=== PATIENT | male | born 1985 | race Caucasian/White ===

== ENCOUNTER 2016-05-28 19:14 | Emergency (ER) | payer SELFPAY ==
[~2016-05-28] VITALS: Ht 175.3 cm; Wt 90.9 kg
[~2016-05-28 19:14] MED LIST: CIPRO 500MG TA500 MG PO; LORTAB 5/500 501 TAB PO; NO HOME MEDICATIONS; NORCO 325 MG-51 TAB PO; PEN-VEE K500 MG PO; PERIDEX (CHLOR480 ML MM; PHENERGAN 25 TA25 MG PO
[2016-05-28 19:25] VITALS: BP 143/94; PULSE 77; TEMP 99.1
[2016-05-28] MEDS ORDERED: ZOFRAN8 MG PO (20:12)
== END 2016-05-28 20:23 | disposition left against medical advice (07) ==
LOC: COL.ER 19:14
DX: R53.83 Other fatigue (principal); R51 Headache; M79.1 Myalgia

== ENCOUNTER 2016-06-02 10:45 | Emergency (ER) | payer SELFPAY ==
[~2016-06-02] VITALS: Ht 177.8 cm; Wt 90.9 kg
[~2016-06-02 10:45] MED LIST changes: +ZOFRAN8 MG PO
[2016-06-02 10:46] VITALS: BP 146/119; TEMP 98.4
[2016-06-02 11:50] LABS: BASO # 0.1 (0.0-0.2); BASO % 0.7 % (0.0-2.0); EOS # 0.5 (0.0-0.7); EOS % 7.1 % (0-4.0); GRAN # 3.2 (1.4-6.5); GRAN % 45.8 % (42.2-75.2); HEMATOCRIT 46.9 % (42.0-52.0); HEMOGLOBIN 15.8 g/dl (13.5-18.0); LYMPH # 2.6 (1.2-3.4); LYMPH % 36.4 % (20.0-51.0); MEAN CELL VOLUME 92 fl (80.0-100.0); MEAN CORPUSCULAR HEMOGLOBIN 31 pg (27.0-31.0); MEAN CORPUSCULAR HGB CONC 34 g/dl (33.0-37.0); MEAN PLATELET VOLUME 11.6 fl (7.4-10.4); MONO # 0.7 (0.1-0.6); MONO % 9.9 % (1.7-9.3); PLATELET COUNT 227 K/mm3 (130-400); RED BLOOD COUNT 5.08 M/mm3 (4.20-5.60); REDCELL DISTRIBUTION WIDTH-CV 12.3 % (11.5-14.5); WHITE BLOOD COUNT 7.1 K/mm3 (4.8-10.8)
[2016-06-02 12:02] LABS: PH 7 (5-8); SQUAMOUS EPITHELIAL None Seen /hpf; URINE APPEARANCE Cloudy; URINE BACTERIA Rare /hpf; URINE BILIRUBIN Negative (NEGATIVE); URINE BLOOD Negative (NEGATIVE); URINE COLOR Yellow; URINE GLUCOSE Negative (NEGATIVE); URINE KETONE Negative (NEGATIVE); URINE RBC 0-2 /hpf
[2016-06-02 12:05] LABS: ADJUSTED CALCIUM 9.2 mg/dL (8.4-10.2); ALANINE AMINOTRANSFERASE 74 U/L (21-72); ALBUMIN 4.1 gm/dL (3.5-5.0); ALKALINE PHOSPHATASE 55 U/L (50-136); ANION GAP 10 mmol/L (7-16); BILIRUBIN,TOTAL 0.7 mg/dL (0.0-1.0); BLOOD UREA NITROGEN 13 mg/dL (9-20); CALCIUM 9.3 mg/dL (8.4-10.2); CARBON DIOXIDE 28 mmol/L (22-30); CHLORIDE 101 mmol/L (98-107); CREATININE, serum 0.77 mg/dL (0.66-1.25); GLUCOSE 102 mg/dL (74-106); LIPASE 37 U/L (23-300); POTASSIUM 4.3 mmol/L (3.4-5.0); SODIUM 139 mmol/L (137-145); TOTAL PROTEIN 6.8 gm/dL (6.4-8.2)
[2016-06-02 12:07] LABS: AMPHETAMINE URINE NEGATIVE; BARBITURATES URINE NEGATIVE; BENZODIAZEPINES URINE NEGATIVE; BUPRENORPHINE URINE NEGATIVE; METHADONE URINE POSITIVE; OPIATES URINE NEGATIVE; OXYCODONE URINE NEGATIVE; PHENCYCLIDINE URINE NEGATIVE; PROPOXYPHENE URINE NEGATIVE; THC CANNABINOIDS URINE POSITIVE
[2016-06-02 13:30] LABS: CHLAMYDIA/TRACH by PCR Male Not Detected; Neisseria Gon by PCR Male Not Detected
[2016-06-02] MEDS ORDERED: LEVAQUIN 5500 MG/TA1 PO (13:32)
[2016-06-02] MEDS ORDERED: PHENERGAN 25 TA25 MG PO (13:36)
[2016-06-02 13:41] VITALS: PULSE 74
== END 2016-06-02 13:41 | disposition home or self-care (01) ==
LOC: COL.ER 10:45
PROVIDERS: Physician Assistant
DX: N45.1 Epididymitis (principal); F17.210 Nicotine dependence, cigarettes, uncomplicated; F19.10 Other psychoactive substance abuse, uncomplicated
CPT/HCPCS: J1885; J2550

== ENCOUNTER 2016-06-08 17:51 | Emergency (ER) | payer SELFPAY ==
[~2016-06-08] VITALS: Ht 177.8 cm; Wt 90.9 kg
[~2016-06-08 17:51] MED LIST changes: +LEVAQUIN 5500 MG/TA1 PO
[2016-06-08 17:54] VITALS: BP 177/107; PULSE 89; TEMP 98.7
[2016-06-08 20:10] LABS: PH 5 (5-8); SQUAMOUS EPITHELIAL 0-2 /hpf; URINE BACTERIA None Seen /hpf; URINE BILIRUBIN Negative (NEGATIVE); URINE BLOOD Negative (NEGATIVE); URINE COLOR Yellow; URINE GLUCOSE Negative (NEGATIVE); URINE KETONE Trace (NEGATIVE)
[2016-06-08 20:12] LABS: URINE APPEARANCE Hazy
[2016-06-08 20:25] LABS: AMPHETAMINE URINE POSITIVE; BARBITURATES URINE NEGATIVE; BENZODIAZEPINES URINE NEGATIVE; BUPRENORPHINE URINE NEGATIVE; METHADONE URINE POSITIVE; OPIATES URINE NEGATIVE; OXYCODONE URINE NEGATIVE; PHENCYCLIDINE URINE NEGATIVE; PROPOXYPHENE URINE NEGATIVE; THC CANNABINOIDS URINE POSITIVE
[2016-06-08 20:25] LABS: INFLUENZA B NEGATIVE
== END 2016-06-08 20:14 | disposition left against medical advice (07) ==
LOC: COL.ER 17:51
PROVIDERS: Physician Assistant
DX: R06.02 Shortness of breath (principal); Z53.21 Procedure and treatment not carried out due to patient leaving prior to being seen by health care provider; F15.10 Other stimulant abuse, uncomplicated; F11.10 Opioid abuse, uncomplicated; F17.210 Nicotine dependence, cigarettes, uncomplicated; R04.2 Hemoptysis

== ENCOUNTER 2016-06-10 14:54 | Emergency (ER) | payer SELFPAY ==
[~2016-06-10] VITALS: Ht 177.8 cm; Wt 90.9 kg
[2016-06-10 14:57] VITALS: TEMP 99.6
[2016-06-10 15:11] VITALS: BP 137/89; PULSE 65
[2016-06-10 15:43] LABS: BASO % 0.6 % (0.0-2.0); EOS # 0.3 (0.0-0.7); GRAN # 3.7 (1.4-6.5); GRAN % 55.5 % (42.2-75.2); HEMATOCRIT 49.1 % (42.0-52.0); HEMOGLOBIN 16.7 g/dl (13.5-18.0); LYMPH # 2.2 (1.2-3.4); LYMPH % 32.9 % (20.0-51.0); MEAN CELL VOLUME 90 fl (80.0-100.0); MEAN CORPUSCULAR HEMOGLOBIN 31 pg (27.0-31.0); MEAN CORPUSCULAR HGB CONC 34 g/dl (33.0-37.0); MEAN PLATELET VOLUME 11.3 fl (7.4-10.4); MONO # 0.5 (0.1-0.6); MONO % 6.9 % (1.7-9.3); PLATELET COUNT 228 K/mm3 (130-400); RED BLOOD COUNT 5.45 M/mm3 (4.20-5.60); REDCELL DISTRIBUTION WIDTH-CV 12.3 % (11.5-14.5); WHITE BLOOD COUNT 6.7 K/mm3 (4.8-10.8)
[2016-06-10 15:56] LABS: ADJUSTED CALCIUM 9.3 mg/dL (8.4-10.2); ALANINE AMINOTRANSFERASE 71 U/L (21-72); ALBUMIN 4.3 gm/dL (3.5-5.0); ALKALINE PHOSPHATASE 57 U/L (50-136); ANION GAP 10 mmol/L (7-16); BILIRUBIN,TOTAL 0.9 mg/dL (0.0-1.0); BLOOD UREA NITROGEN 7 mg/dL (9-20); CALCIUM 9.5 mg/dL (8.4-10.2); CARBON DIOXIDE 27 mmol/L (22-30); CHLORIDE 103 mmol/L (98-107); CREATININE, serum 0.74 mg/dL (0.66-1.25); GLUCOSE 115 mg/dL (74-106); POTASSIUM 4.1 mmol/L (3.4-5.0); SODIUM 140 mmol/L (137-145); TOTAL PROTEIN 7.4 gm/dL (6.4-8.2)
[2016-06-10 16:11] LABS: PROTHROMBIN TIME 11.4 SECONDS (9.7-12.8); TROPONIN-I < 0.012 ng/mL (0.000-0.034)
[2016-06-10 16:13] LABS: PARTIAL THROMBOPLASTIN TIME 32.8 SECONDS (26.0-37.0)
== END 2016-06-10 18:03 | disposition home or self-care (01) ==
LOC: COL.ER 14:54
PROVIDERS: Emergency Medicine
DX: R07.89 Other chest pain (principal); F17.210 Nicotine dependence, cigarettes, uncomplicated

== ENCOUNTER 2016-06-23 19:49 | Emergency (ER) | payer SELFPAY ==
[~2016-06-23] VITALS: Ht 177.8 cm; Wt 90.9 kg
[2016-06-23 20:01] VITALS: BP 155/68; PULSE 97; TEMP 98.6
== END 2016-06-23 20:56 | disposition left against medical advice (07) ==
LOC: COL.ER 19:49
DX: G89.29 Other chronic pain (principal); Z53.29 Procedure and treatment not carried out because of patient's decision for other reasons

== ENCOUNTER 2016-06-26 10:00 | Emergency (ER) | payer SELFPAY ==
[~2016-06-26] VITALS: Ht 177.8 cm; Wt 95.5 kg
[2016-06-26 10:04] VITALS: TEMP 99.8
[2016-06-26 11:23] LABS: BASO # 0.1 (0.0-0.2); BASO % 0.6 % (0.0-2.0); EOS # 0.2 (0.0-0.7); EOS % 2.2 % (0-4.0); GRAN # 6.2 (1.4-6.5); GRAN % 62.9 % (42.2-75.2); HEMOGLOBIN 17.2 g/dl (13.5-18.0); LYMPH # 2.7 (1.2-3.4); LYMPH % 27.3 % (20.0-51.0); MEAN CELL VOLUME 91 fl (80.0-100.0); MEAN CORPUSCULAR HEMOGLOBIN 31 pg (27.0-31.0); MEAN CORPUSCULAR HGB CONC 34 g/dl (33.0-37.0); MEAN PLATELET VOLUME 11.6 fl (7.4-10.4); MONO # 0.7 (0.1-0.6); MONO % 6.7 % (1.7-9.3); PLATELET COUNT 280 K/mm3 (130-400); RED BLOOD COUNT 5.61 M/mm3 (4.20-5.60); REDCELL DISTRIBUTION WIDTH-CV 12.4 % (11.5-14.5); WHITE BLOOD COUNT 9.9 K/mm3 (4.8-10.8)
[2016-06-26 11:30] LABS: ADJUSTED CALCIUM 9.4 mg/dL (8.4-10.2); ALBUMIN 4.5 gm/dL (3.5-5.0); BILIRUBIN,TOTAL 0.5 mg/dL (0.0-1.0); CALCIUM 9.8 mg/dL (8.4-10.2); CREATININE, serum 0.74 mg/dL (0.66-1.25); POTASSIUM 4.1 mmol/L (3.4-5.0); TOTAL PROTEIN 7.4 gm/dL (6.4-8.2)
[2016-06-26 13:32] VITALS: BP 166/99; PULSE 92
== END 2016-06-26 13:31 | disposition home or self-care (01) ==
LOC: COL.ER 10:00
PROVIDERS: Emergency Medicine
DX: R53.81 Other malaise (principal); G89.29 Other chronic pain

== ENCOUNTER 2016-06-26 14:23 | Emergency (ER) | payer SELFPAY ==
[~2016-06-26] VITALS: Ht 177.8 cm; Wt 90.9 kg
[2016-06-26 14:26] VITALS: BP 140/80; PULSE 100; TEMP 98.2
== END 2016-06-26 16:31 | disposition home or self-care (01) ==
LOC: COL.ER 14:23
DX: Z53.9 Procedure and treatment not carried out, unspecified reason (principal)

== ENCOUNTER 2017-01-22 19:39 | Emergency (ER) | payer SELFPAY ==
[~2017-01-22] VITALS: Ht 177.8 cm; Wt 90.9 kg
[2017-01-22 19:48] VITALS: TEMP 99.3
[2017-01-22 22:11] VITALS: BP 131/89; PULSE 88
== END 2017-01-22 23:30 | disposition home or self-care (01) ==
LOC: COL.ER 19:39
DX: S62.633B Displaced fracture of distal phalanx of left middle finger, initial encounter for open fracture (principal); S61.215A Laceration without foreign body of left ring finger without damage to nail, initial encounter; F17.210 Nicotine dependence, cigarettes, uncomplicated; Z23 Encounter for immunization; W28.XXXA Contact with powered lawn mower, initial encounter
CPT/HCPCS: J2270

== ENCOUNTER 2018-07-26 22:35 | Emergency (ER) | payer SELFPAY ==
[~2018-07-26] VITALS: Ht 180.3 cm; Wt 90.9 kg
[2018-07-26 22:39] VITALS: TEMP 97.4
[2018-07-26] MEDS ORDERED: MULTIPLE VITAMI1 CAP PO (22:43)
[2018-07-26 23:49] LABS: BASO # 0.1 (0.0-0.2); BASO % 0.8 % (0.0-2.0); EOS # 0.2 (0.0-0.7); EOS % 1.7 % (0-4.0); GRAN # 6.2 (1.4-6.5); GRAN % 59.4 % (42.2-75.2); HEMATOCRIT 46.8 % (42.0-52.0); HEMOGLOBIN 15.9 g/dl (13.5-18.0); LYMPH % 29.1 % (20.0-51.0); MEAN CELL VOLUME 93 fl (80.0-100.0); MEAN CORPUSCULAR HEMOGLOBIN 32 pg (27.0-31.0); MEAN CORPUSCULAR HGB CONC 34 g/dl (33.0-37.0); MEAN PLATELET VOLUME 10.4 fl (7.4-10.4); MONO # 0.9 (0.1-0.6); MONO % 8.3 % (1.7-9.3); PLATELET COUNT 273 K/mm3 (130-400); RED BLOOD COUNT 5.05 M/mm3 (4.20-5.60); REDCELL DISTRIBUTION WIDTH-CV 13.2 % (11.5-14.5)
[2018-07-26 23:59] LABS: ALANINE AMINOTRANSFERASE 55 U/L (21-72); ALBUMIN 4.2 gm/dL (3.5-5.0); ALCOHOL(ethanol),MEDICAL 229 mg/dL; ALKALINE PHOSPHATASE 48 U/L (50-136); ANION GAP 13 mmol/L (7-16); AST,SGOT 37 U/L (15-37); BILIRUBIN,TOTAL 0.2 mg/dL (0.0-1.0); BLOOD UREA NITROGEN 6 mg/dL (9-20); CALCIUM 8.8 mg/dL (8.4-10.2); CARBON DIOXIDE 22 mmol/L (22-30); CHLORIDE 110 mmol/L (98-107); CREATININE, serum 0.79 mg/dL (0.66-1.25); GLUCOSE 152 mg/dL (74-106); POTASSIUM 3.7 mmol/L (3.4-5.0); SODIUM 144 mmol/L (137-145); TOTAL PROTEIN 7.2 gm/dL (6.4-8.2)
[2018-07-27 00:05] LABS: ACETAMINOPHEN < 10 ug/mL (10-30); SALICYLATE < 1.0 mg/dL
[2018-07-27 04:08] VITALS: BP 137/100; PULSE 115
== END 2018-07-27 04:08 | disposition home or self-care (01) ==
LOC: COL.ER 22:35
PROVIDERS: Emergency Medicine
DX: F10.129 Alcohol abuse with intoxication, unspecified (principal); F17.210 Nicotine dependence, cigarettes, uncomplicated; Y90.7 Blood alcohol level of 200-239 mg/100 ml

== ENCOUNTER 2018-08-10 01:56 | Emergency (ER) | payer SELFPAY ==
[~2018-08-10] VITALS: Ht 188 cm; Wt 127.3 kg
[~2018-08-10 01:56] MED LIST changes: +MULTIPLE VITAMI1 CAP PO
[2018-08-10 02:05] VITALS: TEMP 97.8
[2018-08-10 02:47] LABS: ALBUMIN 4.3 gm/dL (3.5-5.0); BILIRUBIN,TOTAL 0.3 mg/dL (0.0-1.0); CALCIUM 8.9 mg/dL (8.4-10.2); CREATININE, serum 0.85 mg/dL (0.66-1.25); MAGNESIUM 2.2 mg/dL (1.6-2.3); PHOSPHOROUS 3.2 mg/dL (2.5-4.5); POTASSIUM 3.9 mmol/L (3.4-5.0); TOTAL PROTEIN 7.2 gm/dL (6.4-8.2); TRICYCLIC ANTIDEPRESS URINE NEGATIVE
[2018-08-10 03:13] LABS: BASO # 0.1 (0.0-0.2); BASO % 0.6 % (0.0-2.0); EOS # 0.2 (0.0-0.7); EOS % 1.8 % (0-4.0); GRAN # 5.9 (1.4-6.5); GRAN % 60.9 % (42.2-75.2); HEMOGLOBIN 16.7 g/dl (13.5-18.0); LYMPH # 2.9 (1.2-3.4); LYMPH % 29.9 % (20.0-51.0); MEAN CELL VOLUME 96 fl (80.0-100.0); MEAN CORPUSCULAR HEMOGLOBIN 32 pg (27.0-31.0); MEAN CORPUSCULAR HGB CONC 33 g/dl (33.0-37.0); MEAN PLATELET VOLUME 11.1 fl (7.4-10.4); MONO # 0.6 (0.1-0.6); MONO % 6.2 % (1.7-9.3); PLATELET COUNT 220 K/mm3 (130-400); RED BLOOD COUNT 5.29 M/mm3 (4.20-5.60); REDCELL DISTRIBUTION WIDTH-CV 13.1 % (11.5-14.5)
[2018-08-10 06:10] VITALS: BP 132/63; PULSE 85
== END 2018-08-10 06:10 | disposition home or self-care (01) ==
LOC: COL.ER 01:56
PROVIDERS: Emergency Medicine
DX: F10.129 Alcohol abuse with intoxication, unspecified (principal); Y90.7 Blood alcohol level of 200-239 mg/100 ml
CPT/HCPCS: J2405; J7030

== ENCOUNTER 2020-06-14 17:06 | Inpatient (IN) | payer OTHER ==
[~2020-06-14] VITALS: Ht 182.9 cm; Wt 108.9 kg
[2020-06-14] VITALS (104 sets, daily range): BP systolic 133–154; BP diastolic 95; PULSE 99–100; TEMP 97.5–98.8; O2SAT 94–100
[~2020-06-14 17:06] MED LIST changes: -MULTIPLE VITAMI1 CAP PO; +MULTIPLE VITAMI1 TA5 PO
[2020-06-14 18:27] LABS: HEMATOCRIT 47.3 % (42.0-52.0); HEMOGLOBIN 16.9 g/dl (13.5-18.0); MEAN CELL VOLUME 86 fl (80.0-100.0); MEAN CORPUSCULAR HEMOGLOBIN 31 pg (27.0-31.0); MEAN CORPUSCULAR HGB CONC 36 g/dl (33.0-37.0); MEAN PLATELET VOLUME 12.2 fl (7.4-10.4); PLATELET COUNT 270 K/mm3 (130-400); REDCELL DISTRIBUTION WIDTH-CV 12.7 % (11.5-14.5)
[2020-06-14 18:30] LABS: ARTERIAL BLD GAS O2 SATURATION 88.6 % (92-100); ARTERIAL BLD GAS TCO2 CT 3.3; ARTERIAL BLOOD GAS HCO3 2.7 meq/L (22-26)
[2020-06-14 18:31] LABS: ARTERIAL BLOOD GAS PCO2 20.6 mmHg (35-45); ARTERIAL BLOOD GAS pH 6.74 (7.35-7.45)
[2020-06-14 18:46] LABS: PROTHROMBIN TIME 11.6 SECONDS (9.7-12.8)
[2020-06-14 18:47] LABS: ALANINE AMINOTRANSFERASE 54 U/L (4-49); ALKALINE PHOSPHATASE 107 U/L (50-136); AST,SGOT 35 U/L (15-37); BILIRUBIN,TOTAL 0.8 mg/dL (0.0-1.0); BLOOD UREA NITROGEN 25 mg/dL (9-20); CALCIUM 8.1 mg/dL (8.4-10.2); CHLORIDE 99 mmol/L (98-107); CREATINE KINASE 193 U/L (55-170); CREATININE, serum 1.47 (0.66-1.25); SODIUM 127 mmol/L (137-145); TOTAL PROTEIN 6.5 gm/dL (6.4-8.2)
[2020-06-14 18:50] LABS: BAND 10 % (0-10); LYMPHOCYTE 6 % (20.0-51.0); METAMYELOCYTE 3 % (0-0); MYELOCYTE 2 % (0-0); NEUTROPHILS 76 % (42.0-75.2)
[2020-06-14 18:51] LABS: PLATELET ESTIMATE NORMAL (NORMAL)
[2020-06-14 18:56] LABS: GLUCOSE 732 mg/dL (74-106)
[2020-06-14 18:57] LABS: ACETAMINOPHEN < 10 ug/mL (10-30); CARBON DIOXIDE < 5 mmol/L (22-30); POTASSIUM 2.7 mmol/L (3.4-5.0); SALICYLATE < 1.0 mg/dL
[2020-06-14 19:15] LABS: COLLECTION METHOD CLEAN CATCH
[2020-06-14 19:22] LABS: MUCOUS Present /lpf; PH 5 (5-8); SQUAMOUS EPITHELIAL None Seen /hpf; URINE APPEARANCE Hazy; URINE BACTERIA None Seen /hpf; URINE BILIRUBIN Negative (NEGATIVE); URINE BLOOD 2+ (NEGATIVE); URINE COLOR Straw; URINE GLUCOSE 3+ (NEGATIVE); URINE KETONE 2+ (NEGATIVE); URINE LEUKOCYTE ESTERASE Negative (NEGATIVE); URINE NITRATE Negative (NEGATIVE); URINE PROTEIN(semi-quant) 1+ (NEGATIVE); URINE RBC 0-2 /hpf; URINE UROBILINOGEN Negative (NEGATIVE)
[2020-06-14 19:28] LABS: MAGNESIUM 2.8 mg/dL (1.6-2.3); PHOSPHOROUS 5.4 mg/dL (2.5-4.5)
[2020-06-14 19:48] LABS: TRICYCLIC ANTIDEPRESS URINE NEGATIVE
[2020-06-14 20:10] LABS: BLOOD UREA NITROGEN 24 mg/dL (9-20); CALCIUM 7.2 mg/dL (8.4-10.2); CHLORIDE 107 mmol/L (98-107); CREATININE, serum 1.23 (0.66-1.25); SODIUM 132 mmol/L (137-145)
[2020-06-14 20:12] LABS: CARBON DIOXIDE < 5 mmol/L (22-30); GLUCOSE 545 mg/dL (74-106); POTASSIUM 2.3 mmol/L (3.4-5.0)
--- NOTE | 2020-06-14 20:20 | NUR ---
Pt arrived from ED on cart with SUBHASH Guthrie and [facility] Pl[facility]. Pt in police custody. Pt lethargic, responds to raised voice, answers to orientation questions mostly uncomprehendable. Pt is able to state "I am in hospital" but unable to answer any current medications or past medical history questions. Pt removing oxygen mask and attemtping to pull at central line and urinary catheter - bilateral mitts applied to hands Pt is in police custody with hand-cuff placed over yellow socks on right ankle.
[2020-06-14 21:32] LABS: BLOOD UREA NITROGEN 24 mg/dL (9-20); CALCIUM 7.6 mg/dL (8.4-10.2); CHLORIDE 109 mmol/L (98-107); CREATININE, serum 1.27 (0.66-1.25); SODIUM 133 mmol/L (137-145)
--- NOTE | 2020-06-14 21:38 | NUR ---
DUY Valera called regarding critical labs
[2020-06-14 21:39] LABS: CARBON DIOXIDE < 5 mmol/L (22-30); GLUCOSE 488 mg/dL (74-106); POTASSIUM 2.6 mmol/L (3.4-5.0)
[2020-06-14 21:54] LABS: ARTERIAL BLD GAS O2 SATURATION 97.7 % (92-100); ARTERIAL BLD GAS TCO2 CT 3.5; ARTERIAL BLOOD GAS BASE EXCESS -27.7 (-2-2); ARTERIAL BLOOD GAS HCO3 3.1 meq/L (22-26); ARTERIAL BLOOD GAS PO2 97.5 mmHg (80-100); ARTERIAL BLOOD GAS pH 6.94 (7.35-7.45)
[2020-06-14 21:55] LABS: ARTERIAL BLOOD GAS PCO2 14.5 mmHg (35-45)
[2020-06-14 22:31] LABS: BLOOD UREA NITROGEN 24 mg/dL (9-20); CALCIUM 7.3 mg/dL (8.4-10.2); CHLORIDE 112 mmol/L (98-107); CREATININE, serum 1.19 (0.66-1.25); SODIUM 134 mmol/L (137-145)
[2020-06-14 22:35] LABS: CARBON DIOXIDE < 5 mmol/L (22-30); GLUCOSE 429 mg/dL (74-106); POTASSIUM 2.7 mmol/L (3.4-5.0)
--- NOTE | 2020-06-14 22:36 | NUR ---
DUY Valera called regarding critical labs
[2020-06-14 23:33] LABS: BLOOD UREA NITROGEN 23 mg/dL (9-20); CALCIUM 7.3 mg/dL (8.4-10.2); CHLORIDE 112 mmol/L (98-107); CREATININE, serum 1.15 (0.66-1.25); GLUCOSE 372 mg/dL (74-106); POTASSIUM 3.3 mmol/L (3.4-5.0); SODIUM 135 mmol/L (137-145)
[2020-06-14 23:42] LABS: CARBON DIOXIDE < 5 mmol/L (22-30)
[2020-06-15] VITALS (624 sets, daily range): BP systolic 127–160; BP diastolic 61–91; PULSE 102–150; TEMP 97–98.4; O2SAT 82–100
[2020-06-15 00:37] LABS: CALCIUM 7.3 mg/dL (8.4-10.2); CREATININE, serum 1.04 (0.66-1.25)
[2020-06-15 01:35] LABS: CALCIUM 7.3 mg/dL (8.4-10.2)
[2020-06-15 01:36] LABS: POTASSIUM 2.7 mmol/L (3.4-5.0)
--- NOTE | 2020-06-15 01:38 | NUR ---
DUY Valera notified of critical Potassium level
--- NOTE | 2020-06-15 02:19 | NUR ---
Insulin gtt was not restarted after 0115 central line lab draw. Insulin gtt to remain at 8.5U/hr per DUY Valera and titrate again per protocol after 314 lab draw.
[2020-06-15 02:42] LABS: CALCIUM 7.6 mg/dL (8.4-10.2)
[2020-06-15 02:44] LABS: POTASSIUM 2.9 mmol/L (3.4-5.0)
[2020-06-15 03:36] LABS: CALCIUM 7.5 mg/dL (8.4-10.2); CREATININE, serum 0.96 (0.66-1.25)
[2020-06-15 03:37] LABS: POTASSIUM 2.7 mmol/L (3.4-5.0)
--- NOTE | 2020-06-15 04:35 | NUR ---
Respiratory Virus Panel negative for all strains - isolation not required
[2020-06-15 04:43] LABS: CALCIUM 7.4 mg/dL (8.4-10.2); CREATININE, serum 0.94 (0.66-1.25); POTASSIUM 3.6 mmol/L (3.4-5.0)
[2020-06-15 05:38] LABS: HEMATOCRIT 38.5 % (42.0-52.0); MEAN CORPUSCULAR HGB CONC 38 g/dl (33.0-37.0); MEAN PLATELET VOLUME 11.9 fl (7.4-10.4); RED BLOOD COUNT 4.82 M/mm3 (4.20-5.60); REDCELL DISTRIBUTION WIDTH-CV 12.2 % (11.5-14.5)
[2020-06-15 05:49] LABS: CALCIUM 7.6 mg/dL (8.4-10.2); CREATININE, serum 0.91 (0.66-1.25)
[2020-06-15 06:02] LABS: HEMOGLOBIN 14.7 g/dl (13.5-18.0); MEAN CELL VOLUME 80 fl (80.0-100.0); MEAN CORPUSCULAR HEMOGLOBIN 30 pg (27.0-31.0); PLATELET COUNT 156 K/mm3 (130-400)
[2020-06-15 06:08] LABS: BAND 27 % (0-10); LYMPHOCYTE 3 % (20.0-51.0); NEUTROPHILS 64 % (42.0-75.2)
[2020-06-15 06:09] LABS: MICROCYTOSIS 1+; PLATELET ESTIMATE NORMAL (NORMAL)
[2020-06-15 06:10] LABS: HYPOCHROMIA 3+
[2020-06-15 06:17] LABS: ARTERIAL BLD GAS O2 SATURATION 97.8 % (92-100); ARTERIAL BLD GAS TCO2 CT 7.8; ARTERIAL BLOOD GAS BASE EXCESS -17.2 (-2-2); ARTERIAL BLOOD GAS HCO3 7.3 meq/L (22-26); ARTERIAL BLOOD GAS PO2 95.9 mmHg (80-100); ARTERIAL BLOOD GAS pH 7.25 (7.35-7.45)
[2020-06-15 06:51] LABS: CALCIUM 7.8 mg/dL (8.4-10.2); CREATININE, serum 0.9 (0.66-1.25)
[2020-06-15 06:53] LABS: POTASSIUM 2.7 mmol/L (3.4-5.0)
--- NOTE | 2020-06-15 07:10 | NUR ---
RECEIVED REPORT FROM SUBHASH GABRIEL. POLICE AT BEDSIDE. PT SLEEPING, AUDIBLE SNORING NOTED. VSS. CALL LIGHT WITHIN REACH. SEE GTT FLOWSHEET.
[2020-06-15 07:46] LABS: CALCIUM 7.6 mg/dL (8.4-10.2); CREATININE, serum 0.9 (0.66-1.25)
[2020-06-15 07:50] LABS: POTASSIUM 2.1 mmol/L (3.4-5.0)
[2020-06-15 08:42] LABS: CALCIUM 7.7 mg/dL (8.4-10.2); CREATININE, serum 0.91 (0.66-1.25)
[2020-06-15 08:47] LABS: POTASSIUM 1.8 mmol/L (3.4-5.0)
--- NOTE | 2020-06-15 08:50 | NUR ---
SPOKE WITH DR MARTIN ABOUT POC AND CURRENT INSULIN GTT AT 24.5 UNITS/HR. NEW ORDERS RECEIVED. PHYSICIAN STATES TO KEEP FOLLOWING INSULIN GTT AND POTASSUM REPLACEMENT PROTOCOL ACCORDINGLY AND IS OKAY TO KEEP INCREASING INSULIN GTT. PHYSICIAN REQUESTS WHEN TP BECOMES MORE ALERT TO DO NEXT ROUND OF K PO IF CAN. WILL MONITOR CLOSELY.
[2020-06-15 10:51] LABS: CREATININE, serum 0.9 (0.66-1.25)
[2020-06-15 11:02] LABS: POTASSIUM 2.2 mmol/L (3.4-5.0)
--- NOTE | 2020-06-15 12:35 | NUR ---
Chaplain jacobsen for patient outside of door.
[2020-06-15 13:06] LABS: CALCIUM 8.2 mg/dL (8.4-10.2); CREATININE, serum 0.92 (0.66-1.25)
[2020-06-15 13:20] LABS: POTASSIUM 2.6 mmol/L (3.4-5.0)
[2020-06-15 14:54] LABS: CREATININE, serum 0.86 (0.66-1.25)
[2020-06-15 15:00] LABS: POTASSIUM 2.1 mmol/L (3.4-5.0)
--- NOTE | 2020-06-15 16:07 | NUR ---
NOTIFIED DR MARTIN OF HR ECOPTY AND POSITIVE BLOOD CULTURE. NEW ORDERS RECEIVED. RT NOTIFIED FOR EKG.
--- NOTE | 2020-06-15 16:20 | NUR ---
DR VALERA AT BEDSIDE FOR ASSESSMENT. NEW ORDERS RECEIVED. PHYSICIAN STATES TO CALL HER IF TROPONIN IS POSITIVE. WILL MONITOR CLOSELY. DR MARTIN UPDATED ON POC.
[2020-06-15 17:15] LABS: CALCIUM 8.1 mg/dL (8.4-10.2); CREATININE, serum 0.94 (0.66-1.25)
[2020-06-15 17:21] LABS: POTASSIUM 1.6 mmol/L (3.4-5.0)
[2020-06-15 17:29] LABS: TROPONIN-I 0.123 ng/mL (0.000-0.035)
--- NOTE | 2020-06-15 17:45 | NUR ---
NOTIFIED DR VALERA ABOUT TROPNIN LEVEL. STATES TO START PT ON HEPARIN GTT WITH NO BOLUS. NOTIFIED DR MARTIN. SPOKE WITH PHARMACY. OK TO RUN DANIEL, AND HEP GTT TOGETHER.
[2020-06-15 18:14] LABS: PARTIAL THROMBOPLASTIN TIME 29.5 SECONDS (26.0-37.0)
[2020-06-15 19:01] LABS: CALCIUM 8.1 mg/dL (8.4-10.2); CREATININE, serum 0.98 (0.66-1.25)
[2020-06-15 19:02] LABS: POTASSIUM 1.7 mmol/L (3.4-5.0)
--- NOTE | 2020-06-15 20:00 | NUR ---
Assessment complete. Pt is alert and follows commands but will not respond to questions. RIJ triple lumen has insulin gtt, cardizem gtt, and heparin gtt infusing. Bills to DD is free of complications. Police at bedside. Call light within reach.
[2020-06-15 21:04] LABS: CALCIUM 7.9 mg/dL (8.4-10.2); CREATININE, serum 0.94 (0.66-1.25)
[2020-06-15 21:18] LABS: POTASSIUM 1.6 mmol/L (3.4-5.0); TROPONIN-I 3 HR POST INITIAL 0.302 ng/mL (0.000-0.034)
[2020-06-16] VITALS (682 sets, daily range): BP systolic 99–152; BP diastolic 53–87; PULSE 95–110; TEMP 97.7–98.7; O2SAT 81–100
--- NOTE | 2020-06-16 00:01 | NUR ---
INSULIN GTT STOPPED PER PRTOCOL FOR BG 106.
--- NOTE | 2020-06-16 00:05 | NUR ---
HEPARIN GTT STOPPED DUE TO CRITICAL TROPONIN 1.24.
[2020-06-16 00:21] LABS: CALCIUM 7.9 mg/dL (8.4-10.2); CREATININE, serum 0.94 (0.66-1.25)
[2020-06-16 00:22] LABS: POTASSIUM 1.5 mmol/L (3.4-5.0)
[2020-06-16 00:35] LABS: TROPONIN-I 6 HR POST INITIAL 0.442 ng/mL (0.000-0.034)
--- NOTE | 2020-06-16 02:19 | NUR ---
HEPARIN GTT RESTARTED AT 1700 UNITS/HR PER PROTOCOL.
--- NOTE | 2020-06-16 03:01 | NUR ---
INSULIN GTT STOPPED PER PROTOCOL FOR BG OF 106.
--- NOTE | 2020-06-16 04:07 | NUR ---
INSULIN GTT RESTARTED AT 75% PREVIOUS RATE.
[2020-06-16 06:45] LABS: HEMOGLOBIN 12.8 g/dl (13.5-18.0); MEAN CELL VOLUME 76 fl (80.0-100.0); MEAN CORPUSCULAR HEMOGLOBIN 31 pg (27.0-31.0); MEAN CORPUSCULAR HGB CONC 40 g/dl (33.0-37.0); PLATELET COUNT 160 K/mm3 (130-400)
[2020-06-16 06:47] LABS: HEMATOCRIT 32.1 % (42.0-52.0)
--- NOTE | 2020-06-16 07:15 | NUR ---
RECEIVED REPORT FROM SUBHASH LAYNE. PT SLEEPING AT THIS TIME ON RA. CALL LIGHT WITHIN REACH. VSS. FC PATENT AND DRAINING TO GRAVITY. POLICE REMAIN AT BEDSIDE.
[2020-06-16 07:49] LABS: BAND 25 % (0-10); LYMPHOCYTE 9 % (20.0-51.0); METAMYELOCYTE 2 % (0-0); NEUTROPHILS 56 % (42.0-75.2); PLATELET ESTIMATE NORMAL (NORMAL)
[2020-06-16 08:08] LABS: CALCIUM 7.4 mg/dL (8.4-10.2); CREATININE, serum 0.95 (0.66-1.25)
[2020-06-16 08:25] LABS: POTASSIUM 1.8 mmol/L (3.4-5.0)
--- NOTE | 2020-06-16 09:51 | NUR ---
SPOKE WITH DR MARTIN AND DR VALERA ABOUT POC. NEW ORDERS RECEIVED BY BOTH PHYSICIANS. DR VALERA STATES AFTER PO HEART MEDICATIONS ARE GIVEN, CAN TITRATE CARDIZEM GTT OFF IF HR IS STABLE. PHYSICIAN ALSO STATES WILL PLAN FOR A HEART CATH AT SOME POINT.
--- NOTE | 2020-06-16 09:51 | NUR ---
Imaging Specialist attended clinical rounds with the team. The patient is under police protective custody.
[2020-06-16 11:09] LABS: PARTIAL THROMBOPLASTIN TIME 70.3 SECONDS (26.0-37.0)
[2020-06-16 12:23] LABS: CALCIUM 7.6 mg/dL (8.4-10.2); CREATININE, serum 0.91 (0.66-1.25)
[2020-06-16 12:42] LABS: POTASSIUM 2.2 mmol/L (3.4-5.0)
--- NOTE | 2020-06-16 16:00 | NUR ---
DR RANDLE AT BEDSIDE FOR ASSESSMENT. I DICUSSED WITH HIM PT IS REFUSING PO POTASSIUM. PHYSICIAN SUGGESTS TO SPEAK TO HOSPITALISTS FOR SOMETHING TO HELP HIS UPSET STOMACH AND ALSO DO A COUPLE DOSES OF IV KCL TO HELP GET THE POTASSIUM UP SINCE PT IS NOT BEING COMPLIANT EVERY TIME WITH THE PO POTASSIUM. SPOKE WITH DR MARTIN. NEW ORDERS RECEIVED.
[2020-06-16 16:40] LABS: CALCIUM 7.5 mg/dL (8.4-10.2); CREATININE, serum 0.98 (0.66-1.25); POTASSIUM 4.2 mmol/L (3.4-5.0)
[2020-06-16 17:06] LABS: COLLECTION METHOD IN
[2020-06-16 17:11] LABS: PH 7 (5-8); SQUAMOUS EPITHELIAL None Seen /hpf; URINE APPEARANCE Clear; URINE BACTERIA Rare /hpf; URINE BILIRUBIN Negative (NEGATIVE); URINE BLOOD 2+ (NEGATIVE); URINE COLOR Straw; URINE GLUCOSE 3+ (NEGATIVE); URINE KETONE Trace (NEGATIVE); URINE LEUKOCYTE ESTERASE Negative (NEGATIVE); URINE NITRATE Negative (NEGATIVE); URINE PROTEIN(semi-quant) Negative (NEGATIVE); URINE UROBILINOGEN Negative (NEGATIVE); URINE WBC 0-2 /hpf
[2020-06-16 19:07] LABS: URINE PROTEIN:CREAT RATIO 1.74 (0.00-0.14)
--- NOTE | 2020-06-16 20:00 | NUR ---
Assessment complete. Pt is AXO X3, denies having any pain at this time. Pt is much more interactive tonight and responds to questions appropriately. RIJ has heparin gtt infusing. Bills to DD remains free of complications. Pt is resting in bed watching TV at this time and he denies further needs. Call light within reach.
[2020-06-16 20:49] LABS: CALCIUM 7.6 mg/dL (8.4-10.2); CREATININE, serum 0.96 (0.66-1.25); POTASSIUM 4.4 mmol/L (3.4-5.0)
[2020-06-17] VITALS (385 sets, daily range): BP systolic 120–162; BP diastolic 76–100; PULSE 78–105; TEMP 97.7–98.5; O2SAT 73–100
[2020-06-17 00:49] LABS: CALCIUM 7.6 mg/dL (8.4-10.2); CREATININE, serum 0.91 (0.66-1.25); POTASSIUM 4.3 mmol/L (3.4-5.0)
[2020-06-17 04:51] LABS: CALCIUM 7.5 mg/dL (8.4-10.2); CREATININE, serum 0.84 (0.66-1.25)
[2020-06-17 06:51] LABS: CALCIUM 7.5 mg/dL (8.4-10.2); CREATININE, serum 0.82 (0.66-1.25); MAGNESIUM 2.7 mg/dL (1.6-2.3); POTASSIUM 3.9 mmol/L (3.4-5.0)
--- NOTE | 2020-06-17 07:05 | NUR ---
RECEIVED REPORT FROM SUBHASH LAYNE. PT SLEEPING. CALL LIGHT WITHIN REACH. VSS. FC PATENT AND DRAINING TO GRAVITY.
[2020-06-17 08:42] LABS: HEMOGLOBIN 11.8 g/dl (13.5-18.0); MEAN CELL VOLUME 78 fl (80.0-100.0); MEAN CORPUSCULAR HEMOGLOBIN 30 pg (27.0-31.0); MEAN CORPUSCULAR HGB CONC 39 g/dl (33.0-37.0); MEAN PLATELET VOLUME 12.5 fl (7.4-10.4); PLATELET COUNT 156 K/mm3 (130-400); RED BLOOD COUNT 3.88 M/mm3 (4.20-5.60); REDCELL DISTRIBUTION WIDTH-CV 12.6 % (11.5-14.5)
[2020-06-17 08:53] LABS: HEMATOCRIT 30.2 % (42.0-52.0)
--- NOTE | 2020-06-17 09:15 | NUR ---
DR MARTIN AT BEDSIDE DISCUSSING POC WITH PT. NEW ORDERS RECEIVED. PHYSICIAN REQUESTS SW INVOLVEMENT FOR INSURANCE PURPOSE OF INSULIN AND HOME PLACEMENT SITUATION.
--- NOTE | 2020-06-17 12:45 | NUR ---
SPOKE TO PT ABOUT INSULIN SYRINGES, WHAT THEY LOOK LIKE AND SHOWED HIM THE NUMBERS ON IT. EXPLAINED HOW HE WILL ADMINISTER IT MOST TIMES IN HIS ABDOMEN SINCE IT WILL BE EASIEST FOR HIM. PT STATES "OKAY." EXPLAINED TO BE THAT WE WILL BE STARTING TO EDUCATE HIM ON HOW TO CHECK HIS BLOOD SUGARS AND HWO TO GIVE HIMSELF INSULIN. VERBALIZED UNDERSTANDING BUT WILL NEED MUTLIPLE ATTEMPTS AT EDUCATION.
--- NOTE | 2020-06-17 14:59 | NUR ---
The patient is no longer under police protective custody. Accounts Manager met with the patient to complete intake. The patient is homeless has no insurance and not employed. Prior to incarceration he was staying a [facility]. The patient has no PCP. The does not use medical equipment. The patient's parents are . He does not know the whereabouts any aunts or uncles. The patient states he has siblings (he thinks 5 or 6) and only could give me the name of three of them, Jerry and Imer Grider and a sister Dora (does not know her last name) but does not know there whereabouts. The patient is a new diabetic. MELODY collaborated with Pharmacy to order insulin from [facility] ([facility]) and will try to do a Saturday, 06/18 delivery. The patient plans to return to [facility]. MELODY contacted [facility] and the patient is not eligible to return until 07/08. However, since he was not following policy he would still have to talk to staff Chasity regarding readmittance to [facility]. MELODY contacted [facility] and after the director spoke to the patient they cannot accept him and the patient declined to go. MELODY contacted [facility] and they do not accept anyone from [facility]. MELODY contacted [facility] in [facility] # and spoke to Marly Rodriguez RN the Batt Machine Operator with the [facility]. Marly emailed information to this SW and it was placed in the patient's chart. She reports they can accept the patient IF he meets criteria. The patient has to able to walk up two fights of stairs and be able to manage (administer his own insulin) his own medical care. The patient's nurse will have to contact Marly the day PRIOR to discharge to ensure he passes the medical screen. IF he meets criteria they will be able to accept the patient. MELODY collaborated the above information with the patient's nurse.
--- NOTE | 2020-06-17 15:26 | NUR ---
Senior administration approved payment for secure transport to transport patient to [facility] next week. Worker collaborated with Care Trainer regarding the above information.
--- NOTE | 2020-06-17 16:42 | NUR ---
PT TO CROWN ASSEMBLY MACHINE OPERATOR AT 1519 AND BACK AT 1642. PT ARRIVES VIA STRETCHER ACCOMPANIED BY SUBHASH MELLO. PER REPORT, NO INTERVENTION WAS NECESSARY. PT EDUCATED ON NEED TO LIE FLAT FOR THE NEXT 4 HOURS AND WILL ASSIST PT WITH NEEDING TO VOID AND FLUIDS/MEALS. VERBALIZED UNDERSTANDING. CALL LIGHT WITHIN REACH. PLACED BACK ON BEDSIDE PLASTIC DOLLS MOLD FILLER. VSS.
--- NOTE | 2020-06-17 18:10 | NUR ---
WENT OVER EACH PIECE OF MATERIAL USED TO CHECK A BLOOD SUGAR AND PROCESS ON HOW TO. ALCOHOL WIPE, POKE THE SIDES OF THE FINGER NOT THE MIDDLE AND WIPE AWAY FIRST DROP OFF BLOD WHILE TAKING THE SECOND DROP FOR THE GLUCOSE TEST. ALSO EDUCATED PT ON HOW TO ADMINISTER INSULIN: WIPE WITH ALCOHOL SWAB AND PINCH UP FATTY AREA AND INJECT INSULIN. PT ABLE TO VERBALIZE THE EDUCATION BACK SLOWLY BUT DID FORGET ORDER OF HOW TO OBTAIN SAMPLE BUT WAS ABLETO VOICE AFTER REEDUCATION. WILL COTNINUE TO EDUCATE PT WITH EACH ADMINISTRATION AND CHECK TO HELP THE PATIENT REMEMBER THE PROCESS QUICKER AND EASIER.
--- NOTE | 2020-06-17 19:20 | NUR ---
NOTED PT TO BE ROLLED UP ONTO RT SIDE. ASKED PT TO LIE BACK ON HIS BACK. PT HESITANT BUT EVENTUALLY COMPLIES WITH REQUEST. GROIN SITE CHECKED WITH SUBHASH LUNDY ONCOMING RN AND NOTED TO HAVE SMALL AMOUNT OF BLEEDING ON BANDAGE.
--- NOTE | 2020-06-17 19:36 | NUR ---
Report received from Amari CULLEN. Pt resting in bed on side, will not turn onto back. Groin site assessed.
--- NOTE | 2020-06-17 19:51 | NUR ---
[employer] will transport patient to [place] in when patient is ready to be discharged. [facility] will pay for transport per administration. .
--- NOTE | 2020-06-17 21:00 | NUR ---
Pt instruction provided with insulin administration. Reviewed the different kinds of Insulin (long acting vs short acting) and the reason for use with each kinds (short acting is for anticipated spikes in blood sugars with meals), long acting works over a period of time to continue regulation of blood sugars at baseline. I had patient use alcohol, lancet and cotton swab in order to get blood sample, reviewed the need to clean location first, use side of finger, wipe away the first sample of blood and use the second drop for testing. The need to do this in a timely manner due to quick blood clotting time. After sample has been provided it will instruct pt on blood sugar and insulin will be provided as instructed based on results. With administration pt instructed to clean area on stomach, verbalized understanding that it is to go into the fatty tissue. Hold skin in hand, the alcohol cleaned area on abdomen, prior to and during administration of insulin. Pt did this with this nurse giving verbal instructions at bedside while watching technique. Pt grabbed stomach tissue with right hand, administered insulin needle, pressed down reflexologist to administer, then instructed to pull straight out of administration site. Due to Novolog and Levemir doses pulled at seperate times, pt administered both SQ injections at this time. Verbal understanding received that we will repeat this process Q4hrs. This nurse will be in next around midnight for another test/ administration.
[2020-06-18] VITALS (237 sets, daily range): BP systolic 149–161; BP diastolic 81–111; PULSE 81–96; TEMP 97.7–98.5; O2SAT 93–100
--- NOTE | 2020-06-18 01:00 | NUR ---
Pt was provided the instruments in order to obtain glucose reading as well as insulin for HSS based on results received. Pt demonstrated proper use of alcohol side of finger, lancet, wipe away first gtt of blood, use the send gtt for sample. Once specified insulin amount was received, per Emar order, pt demonstrated use of alcohol swab to abdomen with use of needle being placed in the skin and pulled directly out. Little verbal instruction was provided to the pt from the nurse.
--- NOTE | 2020-06-18 05:00 | NUR ---
Due to lab draw glucose was checked with sample from IJ TLC. Pt administered own insulin without any verbal instructions provided although this nurse was monitoring administration.
[2020-06-18 05:44] LABS: MEAN CELL VOLUME 81 fl (80.0-100.0); MEAN CORPUSCULAR HEMOGLOBIN 30 pg (27.0-31.0); MEAN CORPUSCULAR HGB CONC 38 g/dl (33.0-37.0); MEAN PLATELET VOLUME 11.3 fl (7.4-10.4); PLATELET COUNT 183 K/mm3 (130-400); RED BLOOD COUNT 4.28 M/mm3 (4.20-5.60); REDCELL DISTRIBUTION WIDTH-CV 13.1 % (11.5-14.5)
[2020-06-18 05:47] LABS: HEMATOCRIT 34.7 % (42.0-52.0)
[2020-06-18 05:56] LABS: CALCIUM 8.2 mg/dL (8.4-10.2); CREATININE, serum 0.75 (0.66-1.25); MAGNESIUM 2.4 mg/dL (1.6-2.3); POTASSIUM 4.3 mmol/L (3.4-5.0)
[2020-06-18 06:26] LABS: BAND 7 % (0-10); BASOPHIL 1 % (0-2); EOSINOPHIL 4 % (0-4); LYMPHOCYTE 20 % (20.0-51.0); NEUTROPHILS 62 % (42.0-75.2)
[2020-06-18 06:27] LABS: ANISOCYTOSIS 2+; PLATELET ESTIMATE NORMAL (NORMAL)
--- NOTE | 2020-06-18 07:00 | NUR ---
Report provided to Nik CULLEN
--- NOTE | 2020-06-18 12:10 | NUR ---
at bedside. Put in transfer orders to go upstairs to the medical floor. Also changed insulin regimen and said ok to d/c IVF.
--- NOTE | 2020-06-18 14:45 | NUR ---
Patient brought up to medical room 356. SUBHASH Hairston taking over was at bedside.
--- NOTE | 2020-06-18 15:45 | NUR ---
PT ARRIVED TO FLOOR. REQUESTED SNACKS AND SODA. EDUCATED PT ON IMP OF DIET SODA'S AND SUGAR FREE SNACKS FOR A DIABETIC LIFESTYLE. BED ALARM SET, URINAL BROUGHT INTO ROOM. NO OTHER NEEDS.
--- NOTE | 2020-06-18 17:29 | NUR ---
EDUCATED ON 2 SPOTS TO ADMINISTER INSULIN, PT ADMINISTERED HIS OWN INSULIN. PT GIVEN DIET SPRITE. EATING DINNER, NO OTHER NEEDS.
--- NOTE | 2020-06-18 19:00 | NUR ---
REPORT RCVD FROM SUBHASH GARIBAY. PT HAS BEEN DOING WELL GIVING HIMSELF INSULIN TODAY. PT DENIES ANY PAIN OR DISCOMFORT AT THIS TIME. PT DOES SEEM TO BE HAVING SOME DIFFICULTY BREATHING, THIS RN SUGGESTED THE HEAD OF BED BE RAISED. PT AGREEABLE. NO OTHER CONCERNS AT THIS TIME. CALL LIGHT WITHIN REACH, BED ALARM ON.
--- NOTE | 2020-06-18 22:15 | NUR ---
PT GAVE HIMSELF HIS INSULIN INJECTIONS AND TOOK MEDICATIONS. DOES SEEM TO BE A LITTLE OFF AT THIS TIME. BEGAN TO BECOM UNRESPONSIVE. PT WILL NOT REPSOND, AND WILL NOT OPEN HIS EYES. PT DOES NOT RESPOND TO PAINFUL STIMULI AT THIS TIME. STERNAL RUB PERFORMED. PROVIDER NOTIFIED, PROVIDERS CAME TO ASSESS, AND PT PUPILS ARE FIXED AT 8MM. PT BREATHING IS LABORED, SATURATIONS ARE IN THE 96%, BLOOD SUGAR IS 285, BLOOD PRESSURE IS 166/107, AND A REPEAT BLOOD PRESSURE IS 160/112. PT IS NOW UNRESPONSIVE TO SOUNDS, AND PAINFUL STIMULI. CT OF THE HEAD, CHEST XRAY, ABG AND EKG IS ORDERED. PT WILL BE TRANSFERING TO ICU.
--- NOTE | 2020-06-18 23:10 | NUR ---
Pt presents from medical floor, after CT scan completion, for unresponsiveness. Bedside report received from primary medical floor RN at bedside. Pt noted to have increased abdominal breathing. Respiratory VSS. BP elevated and documented. Pt transfered to ICU bed 05. Once transfered pt was following commands with slight eye opening and slight squeeze of hand. Pupils 7 non reactive. Noting verbally orientation to self although not answering orientation questions including , time or location at this moment. Pt said "hey" to this nurse in addition to "water" and "urinal". Has made request to lay on side.
[2020-06-18 23:13] LABS: HEMATOCRIT 41.9 % (42.0-52.0); HEMOGLOBIN 14.9 g/dl (13.5-18.0); MEAN CELL VOLUME 83 fl (80.0-100.0); MEAN CORPUSCULAR HEMOGLOBIN 30 pg (27.0-31.0); MEAN CORPUSCULAR HGB CONC 36 g/dl (33.0-37.0); MEAN PLATELET VOLUME 10.4 fl (7.4-10.4); PLATELET COUNT 222 K/mm3 (130-400); RED BLOOD COUNT 5.03 M/mm3 (4.20-5.60); REDCELL DISTRIBUTION WIDTH-CV 13.3 % (11.5-14.5)
[2020-06-18 23:18] LABS: ARTERIAL BLD GAS O2 SATURATION 94.3 % (92-100); ARTERIAL BLOOD GAS BASE EXCESS -2.3 (-2-2); ARTERIAL BLOOD GAS HCO3 21.1 meq/L (22-26); ARTERIAL BLOOD GAS PCO2 32.3 mmHg (35-45); ARTERIAL BLOOD GAS PO2 60.1 mmHg (80-100); ARTERIAL BLOOD GAS pH 7.43 (7.35-7.45)
--- NOTE | 2020-06-18 23:27 | NUR ---
PT IS CURRENTLY IN ICU. PT DID BEGIN TO RESPOND IN ICU RM 5. ICU NURSE EDDI AND XI AT BEDSIDE WELL RT CHRISTY. PT IS STILL HYPERTENSIVE, AND REPORT HAS BEEN GIVEN AT BEDSIDE BETWEEN THIS RN, AND SUBHASH MONTAGUE. CONCERNS NOTED, AND REPORTED. CHANGE OF RESPONSIBILTY COMPLETED.
[2020-06-18 23:31] LABS: ALBUMIN 3.5 gm/dL (3.5-5.0); BILIRUBIN,TOTAL 0.8 mg/dL (0.0-1.0); CALCIUM 8.8 mg/dL (8.4-10.2); CREATININE, serum 0.85 (0.66-1.25); POTASSIUM 4.6 mmol/L (3.4-5.0); TOTAL PROTEIN 6.4 gm/dL (6.4-8.2)
[2020-06-18 23:37] LABS: BAND 12 % (0-10); EOSINOPHIL 2 % (0-4); LYMPHOCYTE 29 % (20.0-51.0); METAMYELOCYTE 2 % (0-0); MYELOCYTE 1 % (0-0); NEUTROPHILS 46 % (42.0-75.2); PLATELET ESTIMATE NORMAL (NORMAL)
[2020-06-18 23:42] LABS: TROPONIN-I 0.013 ng/mL (0.000-0.035)
[2020-06-19] VITALS (348 sets, daily range): BP systolic 135–152; BP diastolic 92–102; PULSE 86–115; TEMP 97.4–98.4; O2SAT 89–98
--- NOTE | 2020-06-19 03:30 | NUR ---
Upon entering pts room to replace BP cuff, when noting pt was awake, central line dressing was noted to no longer being intact. Supplies gathered at this time and dressing change/ application completed. No signs of displacement noted, 1cm from the hub to skin as well as sutures remained intact. Surround skin noted to have redness/ irritation although remains intact. Chloraprep wipes used that were provided in the central line dressing kit, in addition to an extra one that this nurse pulled with kit. Pt tolerated well. Change documented.
[2020-06-19 03:38] LABS: COLLECTION METHOD CATHETER
[2020-06-19 03:43] LABS: PH 7 (5-8); SQUAMOUS EPITHELIAL None Seen /hpf; URINE APPEARANCE Clear; URINE BACTERIA None Seen /hpf; URINE BILIRUBIN Negative (NEGATIVE); URINE BLOOD 1+ (NEGATIVE); URINE COLOR Yellow; URINE GLUCOSE 3+ (NEGATIVE); URINE KETONE Trace (NEGATIVE); URINE LEUKOCYTE ESTERASE Negative (NEGATIVE); URINE NITRATE Negative (NEGATIVE); URINE PROTEIN(semi-quant) Negative (NEGATIVE); URINE RBC 0-2 /hpf; URINE UROBILINOGEN Negative (NEGATIVE)
[2020-06-19 05:24] LABS: HEMATOCRIT 42.1 % (42.0-52.0); HEMOGLOBIN 15.2 g/dl (13.5-18.0); MEAN CELL VOLUME 83 fl (80.0-100.0); MEAN CORPUSCULAR HEMOGLOBIN 30 pg (27.0-31.0); MEAN CORPUSCULAR HGB CONC 36 g/dl (33.0-37.0); MEAN PLATELET VOLUME 10.7 fl (7.4-10.4); PLATELET COUNT 226 K/mm3 (130-400); RED BLOOD COUNT 5.05 M/mm3 (4.20-5.60); REDCELL DISTRIBUTION WIDTH-CV 13.3 % (11.5-14.5)
--- NOTE | 2020-06-19 05:30 | NUR ---
Pt asked this nurse when in room drawing morning labs off central line, for a warm blanket. Nurse encouraged pt at this time to get cleaned up with some warm wipes. Warm wipes, warm blanket, oral care supplies as well as deodorant was placed within pts reach. Once nurse obtained supplies and returned to pts room, pt was laying on right side, would not open eyes or respond back to nurse verbal encouragement. When nurse asked if pt would prefer to do this later, pt clearly stated "yes". When this nurse was in pts room moments earlier pt had eyes open wide and was alert to what was going on with lab draw.
[2020-06-19 05:32] LABS: TRICYCLIC ANTIDEPRESS URINE NEGATIVE
[2020-06-19 05:33] LABS: ALBUMIN 3.6 gm/dL (3.5-5.0); BILIRUBIN,TOTAL 0.9 mg/dL (0.0-1.0); CALCIUM 8.8 mg/dL (8.4-10.2); CREATININE, serum 0.79 (0.66-1.25); POTASSIUM 4.6 mmol/L (3.4-5.0); TOTAL PROTEIN 6.5 gm/dL (6.4-8.2)
[2020-06-19 05:57] LABS: BAND 10 % (0-10); EOSINOPHIL 1 % (0-4); LYMPHOCYTE 22 % (20.0-51.0); METAMYELOCYTE 2 % (0-0); MYELOCYTE 1 % (0-0); NEUTROPHILS 54 % (42.0-75.2)
[2020-06-19 05:58] LABS: PLATELET ESTIMATE NORMAL (NORMAL)
--- NOTE | 2020-06-19 07:15 | NUR ---
Pt report provided to Nik CULLEN. Pt in bed in high fowlers position eating breakfast. Pt administered insulin dose with meals with stand by assistance. Pt started coughing after taking a bite of food, this nurse strongly encouraged pt to sit up higher/ put a pillow behind upper body. Pt stated, multiple times, "I cant" although encouragement was continued and pt was able to sit up more so a pillow can be put behind back.
--- NOTE | 2020-06-19 10:00 | NUR ---
Notified that the patient has no VTE ordered, he said he would look into it.
--- NOTE | 2020-06-19 14:40 | NUR ---
PATIENT IS ADMITED INTO ROOM 350 FROM ICU. PATIENT IS ORIENTED BUT DROWSY. VSS. PATIENT COMFORTABLE UP IN BED. HEAD TO TOE ASSESSMENT COMPLETE. RIGHT IJ TO INT. ORIENTED TO ROOM. CALL LIGHT IN REACH.
--- NOTE | 2020-06-19 14:40 | NUR ---
Patient brought up to surgical floor to room 350. RNYasmine at bedside.
--- NOTE | 2020-06-19 20:00 | NUR ---
Pt currently lying in bed. Pt was asked if he wanted his dinner tray. He stated he was hungry but did not want his dinner. Pt was given sugar-free jello and pudding and her ate both of them. Pt was given a tooth brush and water to rinse his mouth but stated that he would just try later. Pt did allow me to assess his groin area. He allowed me to clean the area and apply barrier cream. Pt has his call light within reach and his bed is in lowest position.
--- NOTE | 2020-06-20 00:15 | NUR ---
Pt resting in bed. Pt did respond when I asked him if he was doing ok. I infomred him that I would be checking in on him frequently just to make sure he was doing ok.
[2020-06-20 04:35] VITALS: BP 139/96; PULSE 103; TEMP 97
--- NOTE | 2020-06-20 05:48 | NUR ---
Pt resting in bed. Pt is sleeping at this time and did wake up when I asked him how he was doing. Pt has his call light within reach.
[2020-06-20 07:34] VITALS: BP 145/98; PULSE 112; TEMP 97.5
[2020-06-20 07:44] LABS: ALBUMIN 3.9 gm/dL (3.5-5.0); BILIRUBIN,TOTAL 0.9 mg/dL (0.0-1.0); CALCIUM 9.2 mg/dL (8.4-10.2); CREATININE, serum 0.86 (0.66-1.25); HEMATOCRIT 47.8 % (42.0-52.0); HEMOGLOBIN 16.6 g/dl (13.5-18.0); MEAN CELL VOLUME 85 fl (80.0-100.0); MEAN CORPUSCULAR HEMOGLOBIN 30 pg (27.0-31.0); MEAN CORPUSCULAR HGB CONC 35 g/dl (33.0-37.0); MEAN PLATELET VOLUME 10.7 fl (7.4-10.4); PLATELET COUNT 322 K/mm3 (130-400); POTASSIUM 5.1 mmol/L (3.4-5.0); REDCELL DISTRIBUTION WIDTH-CV 13.5 % (11.5-14.5)
--- NOTE | 2020-06-20 07:51 | NUR ---
CRITICAL WBC COUNT OF 22.1 CALLED TO DUY RIVERA. NO ORDERS GIVEN AT THIS TIME.
[2020-06-20 09:14] LABS: BAND 2 % (0-10); BASOPHIL 1 % (0-2); EOSINOPHIL 2 % (0-4); LYMPHOCYTE 10 % (20.0-51.0); METAMYELOCYTE 7 % (0-0); MYELOCYTE 4 % (0-0); NEUTROPHILS 65 % (42.0-75.2)
[2020-06-20 09:15] LABS: PLATELET ESTIMATE NORMAL (NORMAL); POLYCHROMASIA 1+
--- NOTE | 2020-06-20 10:23 | NUR ---
CALLED AND NOTIFIED OF NEUROLOGY CONSULT FOR ALTERED MENTAL STATUS.
[2020-06-20 11:40] VITALS: BP 128/76; PULSE 106; TEMP 97.8
--- NOTE | 2020-06-20 12:50 | NUR ---
PATIENT TAKEN DOWN FOR CT AND MRI VIA CART. WILL WAIT FOR RETURN TO ROOM 350.
--- NOTE | 2020-06-20 13:20 | NUR ---
DUY RIVERA CALLED AND NOTIFIED THAT THIS NURSE WAS UNABLE TO GET THE PATIENT TO RESPOND WITH MORE THAN MUMBLES IN REGARDS TO GETTING CONSENT FOR THE LUMBAR PUNCTURE. NURSING STAFF DOES NOT FEEL COMFORTABLE CONSENTING THE PATIENT HE IN MINIMALLY RESPONSIVE WHEN ATTEMPTING TO GET CONSENT AND WILL NOT ANSWER WITH CONHERANT WORDS. LOUVER MORTISER OPERATOR ERIK AND HYBRID CAR MECHANIC SUAD AWARE OF SITUATION. PATIENT CURRENTLY OFF UNIT FOR SCANS.
--- NOTE | 2020-06-20 14:00 | NUR ---
PATIENT ARRIVED BACK TO ROOM 350 VIA CART FROM SCANS. PATIENT SETTELED BACK INTO ROOM.
[2020-06-20 16:09] VITALS: BP 121/90; PULSE 116; TEMP 97.6
--- NOTE | 2020-06-20 16:54 | NUR ---
CALLED AND NOTIFIED OF ID CONSULT FOR AMS AND WORSENING LEUKOCYTOSIS.
--- NOTE | 2020-06-20 17:16 | NUR ---
Rollway Worker attended clinical rounds with the team. The team discussed patient's altered mental status. SW also confirmed with Deonte Watkins that patient's insulin was delivered. MELODY contacted [facility] and [facility] to attempt to obtain next of kin information. [facility] only had contact for patient's father, who is now . Chasity at [facility] advised patient hardly spoke while there and provided no family contact.
--- NOTE | 2020-06-20 19:02 | NUR ---
PATIENT REFUSED DINNER TRAY. SLIDING SCALE INSULIN HELD. PATIENT ANSWERING YES, NO QUESTIONS THIS AFTERNOON. BEDSIDE REPORT GIVEN TO SUBHASH GARCIA.
--- NOTE | 2020-06-20 20:00 | NUR ---
PATIENT UNABLE TO STATE NAME AND . NOT ABLE TO FOLLOW MOST COMMANDS. SOMETIMES ANSWERS QUESTIONS WITH YES OR NO, SOMETIMES DOES NOT RESPOND. PATIENT LAYING ON SIDE. REPORTS NO PAIN. CALL LIGHT IS IN REACH. NO OTHER NEEDS AT THIS TIME.
[2020-06-20 20:57] VITALS: BP 127/92; PULSE 124; TEMP 97.1
[2020-06-20 23:54] VITALS: BP 116/92; PULSE 107; TEMP 97.8
[2020-06-21 04:26] VITALS: BP 131/91; BP 131/97; PULSE 65; TEMP 98.7
--- NOTE | 2020-06-21 04:35 | NUR ---
PATIENT LAYING IN BED. DID NOT ANSWER MY QUESTION BUT SAID "WATER". GAVE PATIENT A DRINK OF WATER. PATIENT'S EYES WANDER I TALK TO HIM. CALL LIGHT IN REACH AND BED ALARM ON.
--- NOTE | 2020-06-21 05:13 | NUR ---
PATIENT INCONTINENT OF URINE. COMPLETE LINEN CHANGE AND RONA CARE.
--- NOTE | 2020-06-21 07:20 | NUR ---
SAMPLER PICKUP APPROACHED DESK AND NOTIFIED THIS NURSE THAT THE PATIENT TOLD HER THAT HE FEELS NAUSEOUS AND ASKED FOR A SIP OF WATER. DUY GRAY CALLED AND NOTIFIED THAT THERE ARE NO ANTI-EMETIC MEDICATIONS ON THE PATIENTS EMAR.
[2020-06-21 07:47] LABS: HEMATOCRIT 47.5 % (42.0-52.0); HEMOGLOBIN 16.5 g/dl (13.5-18.0); MEAN CELL VOLUME 87 fl (80.0-100.0); MEAN CORPUSCULAR HEMOGLOBIN 30 pg (27.0-31.0); MEAN CORPUSCULAR HGB CONC 35 g/dl (33.0-37.0); PLATELET COUNT 325 K/mm3 (130-400); RED BLOOD COUNT 5.46 M/mm3 (4.20-5.60); REDCELL DISTRIBUTION WIDTH-CV 13.9 % (11.5-14.5)
[2020-06-21 07:56] LABS: ALBUMIN 3.8 gm/dL (3.5-5.0); BILIRUBIN,TOTAL 0.8 mg/dL (0.0-1.0); CALCIUM 9.2 mg/dL (8.4-10.2); CREATININE, serum 0.86 (0.66-1.25); POTASSIUM 4.5 mmol/L (3.4-5.0); TOTAL PROTEIN 7.1 gm/dL (6.4-8.2)
[2020-06-21 08:00] VITALS: BP 119/62; PULSE 115; TEMP 98.1
--- NOTE | 2020-06-21 08:01 | NUR ---
CRITICAL WBC COUNT OF 29.5 CALLED TO DUY GRAY. NO ORDERS GIVEN AT THIS TIME.
[2020-06-21 08:42] LABS: BAND 4 % (0-10); EOSINOPHIL 1 % (0-4); LYMPHOCYTE 8 % (20.0-51.0); NEUTROPHILS 82 % (42.0-75.2); NUCLEATED RED BLOOD CELL 3 (0-6); PLATELET ESTIMATE NORMAL (NORMAL)
[2020-06-21 08:43] LABS: ANISOCYTOSIS 2+
[2020-06-21 08:44] LABS: POLYCHROMASIA 1+
[2020-06-21 12:00] VITALS: BP 130/83; PULSE 96; TEMP 97.5
--- NOTE | 2020-06-21 14:53 | NUR ---
THIS NURSE SPOKE WITH MARI IN RADIOLOGY REGARDING THE LUMBAR PUNCTURE FOR THE PATIENT. MARI TO CALL BACK WITH AVAILABLE TIME.
--- NOTE | 2020-06-21 15:09 | NUR ---
AND HAVE DEEMED THE PATIENT UNABLE TO MAKE HIS OWN MEDICAL DECISIONS AT THIS TIME DUE TO ALTERED MENTAL STATUS. BOTH PARENTS ARE . BOTH DR. LEO AND AGREE THAT THE LUMBAR PUNCTURE NEEDS TO BE COMPLETED TODAY DUE TO MEDICAL NECESSITY. BOTH PHYSICIANS HAVE SIGNED CONSENT FOR FOR LUMBAR PUNCTURE AND WITNESS BY THIS NURSE. CONSENT FORM PLACED ON PATIENT CHART. RADIOLOGY CALLED AND NOTIFIED THAT CONSENT HAS BEEN BEEN OBTAINED BY BOTH PHYSICIANS FOR LUMBAR PUNCTURE.
--- NOTE | 2020-06-21 15:26 | NUR ---
PATIENT DISCONNECTED FROM IV ANTIBIOTICS AT THIS TIME TO GO DOWN FOR LUMBAR PUNCTURE.
--- NOTE | 2020-06-21 15:38 | NUR ---
patient taken to radiology via bed for lumbar puncture. will wait for arrival back to room 350.
[2020-06-21 16:00] VITALS: BP 110/61; PULSE 104; TEMP 98.5
--- NOTE | 2020-06-21 16:05 | NUR ---
PATIENT RETURNED TO ROOM POST LUMBAR PUNCTURE. PATIENT RECONNECTED TO IV ANTIBIOTICS.
--- NOTE | 2020-06-21 16:44 | NUR ---
Plate And Frame Filter Operator collaborated with RN, Anu who advised patient has not been able to administer medications independently or take medications independently. Anu advised she has to put pills in patient's mouth in order for him to take them. MELODY advised Anu that in order to go to the [facility] in [place], [place] patient will need to be independent with these things. MELODY will continue to follow.
[2020-06-21 17:11] LABS: GLUCOSE,CSF 128 mg/dL (40-70)
[2020-06-21 17:23] LABS: TOTAL PROTEIN,CSF 600 mg/dL (15-45)
--- NOTE | 2020-06-21 19:00 | NUR ---
PATIENT IS MORE COMMUNICATIVE THIS EVENING. HE ASKED THIS NURSE TO EMPTY THE URINAL. PATIENT ON BEDREST POST PROCEDURE. BANDAID TO BACK REMAINS CD&I POST LUMBAR PUNCTURE. IV ANTIBIOTICS RUNNING TO RIGHT IJ. PATIENT GIVEN JUICE WITH DINNER DOSE OF INSULIN. BEDSIDE REPORT GIVEN TO SUHBASH PARKS.
[2020-06-21 20:08] LABS: CSF APPEARANCE CLEAR; CSF COLOR YELLOW; CSF RBC 1 /mm3 (0-0)
--- NOTE | 2020-06-21 20:45 | NUR ---
Pt. laying in bed at this time. Pt. is A&OX3, shift assessment complete. TLC to rt. IJ patent. Pt. is very lethargic at this time. Pt. denies pain or other needs. Call light within reach.
[2020-06-21 21:40] VITALS: BP 129/82; PULSE 88; TEMP 97.5
[2020-06-22] VITALS (7 sets, daily range): BP systolic 116–153; BP diastolic 66–85; PULSE 83–112; TEMP 97.5–98.5
--- NOTE | 2020-06-22 07:39 | NUR ---
Patient lying in bed with eyes closed. Ask patient to wake up and patient will not open eyes or answer questions. No signs or symptoms of discomfort noted at this time.
[2020-06-22 07:53] LABS: HEMATOCRIT 42.3 % (42.0-52.0); MEAN CELL VOLUME 89 fl (80.0-100.0); MEAN CORPUSCULAR HEMOGLOBIN 31 pg (27.0-31.0); MEAN CORPUSCULAR HGB CONC 34 g/dl (33.0-37.0); PLATELET COUNT 268 K/mm3 (130-400); RED BLOOD COUNT 4.74 M/mm3 (4.20-5.60); REDCELL DISTRIBUTION WIDTH-CV 13.8 % (11.5-14.5)
[2020-06-22 07:55] LABS: HEMOGLOBIN 14.5 g/dl (13.5-18.0)
[2020-06-22 07:58] LABS: ALBUMIN 3.3 gm/dL (3.5-5.0); BILIRUBIN,TOTAL 0.7 mg/dL (0.0-1.0); CALCIUM 8.6 mg/dL (8.4-10.2); CREATININE, serum 0.93 (0.66-1.25); MAGNESIUM 2.1 mg/dL (1.6-2.3); POTASSIUM 3.6 mmol/L (3.4-5.0); TOTAL PROTEIN 6.3 gm/dL (6.4-8.2)
--- NOTE | 2020-06-22 08:34 | NUR ---
Patient lying on left side with eyes open. Will not answer questions when asked. Just goes "uh". Ate approx 50% of his food. Explain to the patient that he needs to learn to give himself his insulin. Offer to teach patient how to give insulin. Patient refuses and says that he will not do it himself. Discuss importance of managing diabetes. Patient does not say anything back.
--- NOTE | 2020-06-22 09:30 | NUR ---
Patient calls and wants to use bathroom. Encourage patient to sit on edge of bed. Patient says that he can't. Encourage patient and explain that he needs to try. Patient sits up on edge of bed with assist. Explain that he needs to help stand to walk into the bathroom. Patient then throws himself back in the bed and says that it is too much and he can't do it. Patient on bedpan at this time. RODNEY Garibay, in room with the patient and providing bed bath.
[2020-06-22 09:35] LABS: BAND 9 % (0-10); EOSINOPHIL 2 % (0-4); LYMPHOCYTE 21 % (20.0-51.0); METAMYELOCYTE 3 % (0-0); NEUTROPHILS 52 % (42.0-75.2); PLATELET ESTIMATE NORMAL (NORMAL)
--- NOTE | 2020-06-22 10:12 | NUR ---
Lying in bed with eyes open. Refused to work with therapy. Had a discussion with the patient about working with therapy to regain strength. Patient nods head in agreement, therapy was already gone at this time. Patient requests lights off to sleep.
--- NOTE | 2020-06-22 10:40 | NUR ---
THis nurse hears IV beeping. Says site occlusion. Epxlain to the patient that he cannot lay on his right side in the position he was in because it was causing the IV to occlude and not infuse. Patient says nothing, no response. Ask patient to lay on left side to see if this helps. Patient says "no". Explain to the patient that the medication is not infusing in this position and we need to get him to reposition to get the medication in. Patient gets loud and says that he is not going to move. Explain that I can just unhook the IV then and let the provider know that he is refusing to move positions to allow the medication to go in. Patient then begins to curse and tells this nurse to get out of the room. Allow patient to calm down. Patient asks what he needs to do. Explain that I am only trying to get him to reposition in the bed to allow the medication to go in. Patient with assist of this nurse repositions to left side. Rebegin IV.
--- NOTE | 2020-06-22 13:10 | NUR ---
Lying in bed with eyes open. Ate 10% of lunch, says he does not want any more. Ask patient if he would like to learn how to inject his insulin. Patient refuses. Denies additional needs at this time.
--- NOTE | 2020-06-22 14:05 | NUR ---
Lab needs sample for orders. THis nurse goes in room to draw blood from IJ. Patient said something about a blanket that was hard to understand. When asked to clarify patient rolls eyes and says why. Asked if he was needing a blanket and patient says yes. Patient then spits spit out of his mouth towards this nurse. Finished drawing blood from line. Warm blanket provided.
--- NOTE | 2020-06-22 16:57 | NUR ---
Accu check 80. Spoke with DUY Miramontes, and order received to hold Novolog 20units for this one dose tonight.
--- NOTE | 2020-06-22 17:05 | NUR ---
Lying in bed on right side with eyes closed, open when enter room. Attempt to talk with the patient and he will not answer when asked questions. Water provided. No signs or symptoms of discomfort noted.
--- NOTE | 2020-06-22 17:41 | NUR ---
Patient lying in bed on right side. Patient has thrown foods and containers on the floor. Encourage patient to not throw the food and containers on the floor and to just leave them on his tray and we will remove whatever he does not want with his tray. Patient does not say anything back, just shuts eyes.
--- NOTE | 2020-06-22 23:08 | NUR ---
PATIENT RESTING IN BED. CONTINUES TO LAY ON HIS RIGHT SIDE WHICH OCCLUDES HIS IV. CONTINUE TO REMIND HIM HE NEEDS TO LAY ON HIS BACK OR LEFT SIDE. PATIENT DOES NOT RESPOND. PATIENT IS ABLE TO EXPRESS HIS NEEDS TO ME.
[2020-06-23 03:53] VITALS: BP 146/78; PULSE 96; TEMP 98.4
--- NOTE | 2020-06-23 06:25 | NUR ---
Patient voided in urinal throughout the night. Responded to me with one word answers. Patient calling appropriately. Patient asked for help turning over and reaching for his water or urinal, but told patient he needed to do those things on his own. He eventually did.
[2020-06-23 06:41] LABS: HEMATOCRIT 40.3 % (42.0-52.0); HEMOGLOBIN 13.5 g/dl (13.5-18.0); MEAN CELL VOLUME 90 fl (80.0-100.0); MEAN CORPUSCULAR HEMOGLOBIN 30 pg (27.0-31.0); MEAN CORPUSCULAR HGB CONC 34 g/dl (33.0-37.0); MEAN PLATELET VOLUME 10.7 fl (7.4-10.4); PLATELET COUNT 243 K/mm3 (130-400); RED BLOOD COUNT 4.48 M/mm3 (4.20-5.60); REDCELL DISTRIBUTION WIDTH-CV 14.5 % (11.5-14.5)
[2020-06-23 06:56] LABS: CALCIUM 8.7 mg/dL (8.4-10.2); CREATININE, serum 1.05 (0.66-1.25); POTASSIUM 3.2 mmol/L (3.4-5.0)
[2020-06-23 07:45] LABS: BAND 6 % (0-10); EOSINOPHIL 1 % (0-4); LYMPHOCYTE 28 % (20.0-51.0); METAMYELOCYTE 5 % (0-0)
[2020-06-23 07:47] LABS: PLATELET ESTIMATE NORMAL (NORMAL)
[2020-06-23 07:49] LABS: NEUTROPHILS 44 % (42.0-75.2)
[2020-06-23 09:00] VITALS: BP 151/72; PULSE 114; TEMP 99
--- NOTE | 2020-06-23 10:00 | NUR ---
Patient alert and oriented, one word answers or mumbling. Intially refused assessment, but eventually complies. Several items noted to be lying on floor, when patient is inquired about the items, he states "I didn't want them." Reviewed with patient appropriate behaviors, does not reply. Intially refuses blood draw, reviewed with patient reasons for lab draw and complies. During lab draw patient states "I'm having a seizure, I'm weak from all the blood your taking, I'm weak". No seizure activity noted. Physical therapy reports to nurse that patient has refused PT this morning. No s/s pain or discomfort noted.
--- NOTE | 2020-06-23 10:30 | NUR ---
Patient refused all medications this morning. States "I'm too weak".
[2020-06-23 11:58] VITALS: BP 134/67; PULSE 111; TEMP 98.8
--- NOTE | 2020-06-23 12:02 | NUR ---
Patient refuses to use urinal, urinates in bed. Linens and brief changed.
--- NOTE | 2020-06-23 12:30 | NUR ---
Patient continues to refuse activity and medications. Reviewed POC with patient, turns away and refuses education.
--- NOTE | 2020-06-23 15:56 | NUR ---
Cutting And Boning Supervisor contacted Becca at [facility] to request screening and faxed records. MELODY attended clinical rounds and patient is still refusing to administer his own medications, speak to staff, and has been spitting at staff. Becca at [facility] advised he would have to be off IV medications before a screening could take place. MELODY collaborated with DUY Miramontes who will speak with Infectious Disease. MELODY will continue to follow.
[2020-06-23 17:01] VITALS: BP 171/88; PULSE 103; TEMP 97.7
--- NOTE | 2020-06-23 18:54 | NUR ---
Patient continues to refuse cares and education throughout the day, turns away when talked to and states "leave me alone". No interest in self administration of insulin. States "I'm not doing it because I'm no leaving. No c/o at this time.
[2020-06-23 20:08] VITALS: BP 149/97; PULSE 109; TEMP 98.8
--- NOTE | 2020-06-23 20:08 | NUR ---
PATIENT INCONTINENT OF URINE AND STOOL. ENCOURAGED PATIENT TO GET UP AND TAKE A SHOWER. PATIENT REFUSED. CLEANED PATIENT UP AND DID A FULL LINEN CHANGE. EDUCATED PATIENT ON CALLING WHEN HE NEEDS TO GO TO THE BATHROOM.
--- NOTE | 2020-06-23 22:48 | NUR ---
PATIENT INCONTINENT OF URINE. WHEN ASKED TO ROLL, HE STATES HE CAN'T BECAUSE HE IS TOO WEAK. PATIENT ROLLED INDEPENDENTLY EARLIER THIS SHIFT WHEN INCONTINENT. REMINDED PATIENT OF THIS AND HE KEPT SAYING HE CAN'T ROLL. CLEANED PATIENT UP WITH ASSISTANCE OF CARE TRAINER.
--- NOTE | 2020-06-23 23:47 | NUR ---
PATIENT REQUESTED JELLO AND IS EATING IT INDEPENDENTLY.
[2020-06-23 23:51] VITALS: BP 139/89; PULSE 95; TEMP 97.3
--- NOTE | 2020-06-24 00:30 | NUR ---
Patient used urinal to void by himself.
[2020-06-24 03:59] VITALS: BP 144/84; PULSE 102; TEMP 97.5
--- NOTE | 2020-06-24 05:44 | NUR ---
Patient not responding to me this morning. Had to tell him several times that he could take his medicine on his own and he kept shaking his head at me. Patient eventually picked up med and took it.
[2020-06-24 06:23] LABS: HEMATOCRIT 37.6 % (42.0-52.0); HEMOGLOBIN 12.7 g/dl (13.5-18.0); MEAN CELL VOLUME 91 fl (80.0-100.0); MEAN CORPUSCULAR HEMOGLOBIN 31 pg (27.0-31.0); MEAN CORPUSCULAR HGB CONC 34 g/dl (33.0-37.0); MEAN PLATELET VOLUME 10.6 fl (7.4-10.4); PLATELET COUNT 218 K/mm3 (130-400); RED BLOOD COUNT 4.15 M/mm3 (4.20-5.60); REDCELL DISTRIBUTION WIDTH-CV 14.3 % (11.5-14.5)
[2020-06-24 06:39] LABS: ALBUMIN 3.1 gm/dL (3.5-5.0); BILIRUBIN,TOTAL 0.5 mg/dL (0.0-1.0); CALCIUM 8.6 mg/dL (8.4-10.2); CREATININE, serum 1.13 (0.66-1.25); POTASSIUM 3.3 mmol/L (3.4-5.0); TOTAL PROTEIN 5.9 gm/dL (6.4-8.2)
[2020-06-24 07:12] VITALS: BP 154/85; PULSE 84; TEMP 98
[2020-06-24 07:31] LABS: LYMPHOCYTE 19 % (20.0-51.0); METAMYELOCYTE 7 % (0-0); NEUTROPHILS 61 % (42.0-75.2); PLATELET ESTIMATE NORMAL (NORMAL)
--- NOTE | 2020-06-24 10:15 | NUR ---
TAKING OVER PATIENT'S CARE. RECEIVED REPORT FROM SUBHASH CHAPA.
--- NOTE | 2020-06-24 11:30 | NUR ---
FINANCIAL INSTITUTION BRANCH MANAGER WORKING ON GETTING PAWNEE TO COME AND EVAL PATIENT.
[2020-06-24 12:55] VITALS: BP 126/70; PULSE 88; TEMP 98.7
--- NOTE | 2020-06-24 15:30 | NUR ---
PATIENT ASKING TO HAVE LIGHTS TURNED OFF SO HE CAN SLEEP. NURSING EDUCATED PATIENT ABOUT STAYING AWAKE DURING THE DAY. NURSING REMINDED HIM THAT HE WOULDN'T TALK TO THE DOCTOR OR PARTICIPATE IN CARE DURING PHYSICIAN AND NURSE ROUNDS. PATIENT STATES "WELL, IM IN THE HOSPITAL". NURSING EDUCATED PATIENT ABOUT PROGRESSING TO DISCHARGE. PATIENT SEEMS UNINTERESTED IN DISCHARGE. REFUSED TO PARTICIPATE IN CARE. PATIENT THEN CALLS NURSES STATION AND ASK ANOTHER STAFF MEMBER TO TURN OF LIGHTS SO HE CAN SLEEP. PATIENT AGAIN EDUCATED ABOUT WAKE/SLEEP CYCLES
[2020-06-24 15:40] VITALS: BP 137/95; PULSE 87; TEMP 98.4
--- NOTE | 2020-06-24 16:51 | NUR ---
Electrical Technician faxed updates to [facility] and again requested a screening. MELODY spoke with Mitra at the [facility]. Despite being medically stable, Mitra did not think a screen would be beneficial as patient would not meet criteria for involuntary placement and would need to be able to complete basic cares to be placed voluntarily, which he is not doing. MELODY provided update to DUY Lyman who put in psych screen. MELODY contacted the CARE program and left a message for Richa Pinto about a Level II screening. MELODY made a report to APS (intake#[id number]). Patient continues to refuse cares, medications, and has been incontinent in bed.
[2020-06-24 19:58] VITALS: BP 164/85; PULSE 106; TEMP 97.5
--- NOTE | 2020-06-24 20:00 | NUR ---
Report received, assumed care for auto radiator mechanic. Assessment complete. Does not answer questions just stares at this nurse. Will not follow commands through assessment so information limited. Did speak up once to inform this nurse that "I need my damn diaper changed I pissed and shit in it." Instructed to call for assistance and staff would help him up to commode instead of using briefs. Did not respond. Plan of care discussed for this shift to include potassium admin/medications. Not interested in conversation so instructed if quesitons/concerns arise use call light. Call light is in reach. Will monitor.
--- NOTE | 2020-06-24 21:00 | NUR ---
HS dose of insulin given at this time by this nurse. Patient would not attempt to self administer and continues to keep eyes closed and not answering questions/following commands when asked. Continue to be incontinent of bowel in brief even with multiple attempts to help up to commode. Currently is using his urinal. Call light in reach. Will monitor.
[2020-06-24 22:31] VITALS: BP 137/85; PULSE 85; TEMP 98.3
[2020-06-25 02:28] VITALS: BP 132/80; PULSE 93; TEMP 97.4
--- NOTE | 2020-06-25 02:36 | NUR ---
Called stating he needed a new brief. Incontinent of urine/stool. PCT states he refused to get up to commode. While PCT in room assisting continued to call to desk because PCT wanted him to try to wipe himself. Finally did wipe self x1 after several minutes of discussing/ignoring requests. Call light in reach. Will monitor.
--- NOTE | 2020-06-25 04:00 | NUR ---
Has continued to call 8 times requesting a "neck rub." States his neck is sore and would like us to continue to rub it. PCT and this nurse have rubbed neck 6-8 times already the last two hours. Also gave a heating pad. Instructed to apply to neck to ease discomfort. States he wants some Morphine for this pain. Will attempt heat pad before calling hospitalist.
--- NOTE | 2020-06-25 04:35 | NUR ---
TYSON Romero notiifed of c/o neck pain. New orders received.
[2020-06-25 06:18] LABS: HEMOGLOBIN 13.1 g/dl (13.5-18.0); MEAN CELL VOLUME 91 fl (80.0-100.0); MEAN CORPUSCULAR HEMOGLOBIN 30 pg (27.0-31.0); MEAN CORPUSCULAR HGB CONC 34 g/dl (33.0-37.0); PLATELET COUNT 204 K/mm3 (130-400); RED BLOOD COUNT 4.31 M/mm3 (4.20-5.60); REDCELL DISTRIBUTION WIDTH-CV 14.1 % (11.5-14.5)
[2020-06-25 06:34] LABS: CALCIUM 9.1 mg/dL (8.4-10.2); CREATININE, serum 1.08 (0.66-1.25); POTASSIUM 3.6 mmol/L (3.4-5.0)
[2020-06-25 07:11] VITALS: BP 144/95; PULSE 90; TEMP 97.7
--- NOTE | 2020-06-25 11:00 | NUR ---
This morning patient refused to take oral potassium. Discussed why, he stated it makes him nauseous and causes cramps. Worked with him on giving hiw own injections. He did most of it on his own. He did not dial the pens because he stated he could not read the numbers. Discussed counting the clicks. I set the dial but he gave his injections to himself. He did well and followed the steps correctly. Will start IV potassium. Dr Colón seeing patient and wants him to have an MRI because the patient is having pain in his neck and stated he can not sit up. No other changes at this time. Call light within reach.
[2020-06-25 11:13] VITALS: BP 128/88; PULSE 85; TEMP 97.7
--- NOTE | 2020-06-25 15:13 | NUR ---
Patients central line is red and swollen. Was going to change the dressing because the patient keeps picking and his dressing. No drainage from the site. Patient is still refusing to do much for himself. He is using the urinal on his own. Ultram seems to be helping his pain. Denies nausea. Notified Hospitalist of patients central line, will discontinue line as ordered and start new peripheral IV site. No other changes at this time. Call light within reach.
[2020-06-25 15:18] VITALS: BP 131/69; PULSE 86; TEMP 97.7
[2020-06-25 20:02] VITALS: BP 150/98; PULSE 101; TEMP 98.1
--- NOTE | 2020-06-25 21:30 | NUR ---
Pt. laying in bed, upon entering the room, the pt. acts unresonsive. Pt. Assessed and is A&OX3. Pt. does respond when told I have brought you a pain pill. Pt. suddenly is able to converse with this nurse. Pt. then told he needs to administer his own insulin. Pt. instantly is to weak, and is rolling eyes back in his head. This nurse stated "I know you are able to do this and I will not allow you to be an invalid". Pt. reluctantly is able to administer his insulin. The only assistance given was removing the needle foil. Pt. continues to complain that he is "too weak". This nurse educated the pt. that the only way it gets easier is to try. Pt. rolls eyes at this nurse again. Pt. denies further needs, call light within reach.
[2020-06-26 03:36] VITALS: BP 142/72; PULSE 83; TEMP 98
[2020-06-26 06:21] LABS: HEMATOCRIT 40.7 % (42.0-52.0); HEMOGLOBIN 13.6 g/dl (13.5-18.0); MEAN CELL VOLUME 90 fl (80.0-100.0); MEAN CORPUSCULAR HEMOGLOBIN 30 pg (27.0-31.0); MEAN CORPUSCULAR HGB CONC 33 g/dl (33.0-37.0); MEAN PLATELET VOLUME 10.5 fl (7.4-10.4); PLATELET COUNT 209 K/mm3 (130-400); RED BLOOD COUNT 4.51 M/mm3 (4.20-5.60); REDCELL DISTRIBUTION WIDTH-CV 14.8 % (11.5-14.5)
[2020-06-26 06:34] LABS: CALCIUM 9.3 mg/dL (8.4-10.2); CREATININE, serum 1.15 (0.66-1.25); POTASSIUM 3.9 mmol/L (3.4-5.0)
[2020-06-26 07:38] VITALS: BP 131/89; PULSE 91; TEMP 97.5
[2020-06-26 11:33] VITALS: BP 115/70; PULSE 79; TEMP 97.8
--- NOTE | 2020-06-26 13:00 | NUR ---
Patient had a large bowel movement in the bed. We helped him walk to the shower. Assisted him with a shower. He was able to wash his front, his legs and his abdomen. Had to assist him with washing the stool off and washing his back. Patient did not initially want to get up in the shower but explained this was the best way to get him clean. He needed some help with standing but was able to walk well without issues. No other changes at this time. Call light within reach.
[2020-06-26 16:00] VITALS: BP 144/100; PULSE 85; TEMP 98.3
--- NOTE | 2020-06-26 19:00 | NUR ---
Patient has been calling a lot for help and food. His glucose at supper time was 89, he refused his humalog. Minimal complaints of pain today. No complaints of nausea. He had an incontinent void around shift change. RODNEY Nunes and Maria Fernanda helped him stand up and get cleaned up. Patient has not been incontinent of urine all day, he has been using the urinal. This evening he seems to be doing less for himself. He was able to give himself his injections. He kept stated he could not see the numbers on the dial, had him count them. Explained that it is important to given himself these injections because he will be doing this for the rest of his life. No other changes at this time. Call light within reach.
[2020-06-26 19:54] VITALS: BP 133/88; PULSE 97; TEMP 98.5
[2020-06-26 23:21] VITALS: BP 99/61; PULSE 80; TEMP 98.4
--- NOTE | 2020-06-27 00:37 | NUR ---
RESING QUIETLY NOW. PT DID AMBULATE TO TOILET WITH ASSIST. INITIAL H.S. ACCU CHECK READ 442 mg/dL. HAD DAIRY BAR MANAGER CHECK IT AGAIN AND IT WAS JUST OVER 100. PT WAS UNABLE TO DIAL IN HIS BASAGLAR INSULIN PEN TO THE PROPER DOSE, STATING, "I CAN'T SEE IT." WHEN ASKED HOW HE IS ABLE TO GIVE HIS INSULIN AT HOME, HE STATED, "I JUST DON'T DO IT."
[2020-06-27 04:02] VITALS: BP 115/66; PULSE 85; TEMP 97.9
[2020-06-27 06:03] LABS: BASO # 0.1 (0.0-0.2); BASO % 0.4 % (0.0-2.0); EOS # 0.1 (0.0-0.7); EOS % 0.8 % (0-4.0); GRAN # 11.1 (1.4-6.5); GRAN % 76.2 % (42.2-75.2); HEMATOCRIT 39.7 % (42.0-52.0); HEMOGLOBIN 13.4 g/dl (13.5-18.0); LYMPH # 2.3 (1.2-3.4); LYMPH % 15.8 % (20.0-51.0); MEAN CELL VOLUME 92 fl (80.0-100.0); MEAN CORPUSCULAR HEMOGLOBIN 31 pg (27.0-31.0); MEAN CORPUSCULAR HGB CONC 34 g/dl (33.0-37.0); MEAN PLATELET VOLUME 10.4 fl (7.4-10.4); MONO # 0.8 (0.1-0.6); MONO % 5.6 % (1.7-9.3); PLATELET COUNT 198 K/mm3 (130-400); RED BLOOD COUNT 4.34 M/mm3 (4.20-5.60); REDCELL DISTRIBUTION WIDTH-CV 14.4 % (11.5-14.5)
[2020-06-27 06:12] LABS: CALCIUM 9.3 mg/dL (8.4-10.2); CREATININE, serum 1.26 (0.66-1.25); POTASSIUM 3.7 mmol/L (3.4-5.0)
[2020-06-27 07:41] VITALS: BP 118/79; PULSE 86; TEMP 97.5
--- NOTE | 2020-06-27 08:38 | NUR ---
PATIENT TAKEN FOR MRI VIA WHEELCHAIR. AWAITING PATIENT ARRIVAL BACK TO ROOM 350.
--- NOTE | 2020-06-27 09:20 | NUR ---
PATIENT ARRIVED BACK TO ROOM 350 VIA WHEELCHAIR.
--- NOTE | 2020-06-27 09:45 | NUR ---
PATIENT AM MEDICATIONS GIVEN. SHIFT ASSESSMENT COMPLETED AT THIS TIME. PATIENT ADMINISTERED INSULIN WITH THE PEN WITH A LOT OF CUEING FROM THIS NURSE. PATIENT ASSISTED TO THE BATHROOM WITH 1 ASSIST AND BACK TO BED. CALL LIGHT WITHIN REACH. NO NEEDS AT THIS TIME.
[2020-06-27 10:50] VITALS: BP 128/92; PULSE 74; TEMP 98.6
[2020-06-27 15:34] VITALS: BP 133/77; PULSE 86; TEMP 98.1
--- NOTE | 2020-06-27 18:03 | NUR ---
PATIENT GIVEN PRN PO TRAMADOL FOR PAIN REPORTED AT THE RIGHT IJ SITE. PATIENT SELF ADMINISTERED INSULIN THIS EVENING WITH MINIMAL CUEING FROM THIS NURSE. CALL LIGHT WITHIN REACH. WILL REPORT OFF TO ONCOMING NURSE.
[2020-06-27 20:13] VITALS: BP 144/87; PULSE 92; TEMP 98
--- NOTE | 2020-06-27 23:25 | NUR ---
PATIENT RESTING IN BED. ANSWERS QUESTIONS WITH A FEW WORDS. HE IS USING URINAL TO VOID. PATIENT ADMINISTERED HIS INSULIN TONIGHT WITH SOME ASSISTANCE. FLUIDS ARE INFUSING. NO OTHER NEEDS AT THIS TIME. CALL LIGHT IN REACH.
[2020-06-27 23:42] VITALS: BP 122/72; PULSE 80; TEMP 98.1
--- NOTE | 2020-06-28 04:53 | NUR ---
PATIENT CONTINUES TO LAY ON RIGHT SIDE AFTER INSTRUCTING HIM THAT IT IS OCCLUDING HIS IV. PATIENT REFUSES TO LAY DIFFERENT WHEN TRYING TO RESTART FLUIDS. FLUIDS PLACED ON STANDBY FOR NOW.
[2020-06-28 05:09] VITALS: BP 133/74; PULSE 81; TEMP 98.6
--- NOTE | 2020-06-28 06:27 | NUR ---
NOT ABLE TO DRAW BLOOD THROUGH CENTRAL LINE. LAB ATTEMPTED TO DRAW BLOOD BUT COULD NOT GET IT.
[2020-06-28 08:31] VITALS: BP 154/88; PULSE 86; TEMP 98.5
--- NOTE | 2020-06-28 10:00 | NUR ---
Patient alert and oriented, answers questions appropriately. See assessment. No c/o at this time.
[2020-06-28 11:58] VITALS: BP 139/84; PULSE 77; TEMP 98.7
[2020-06-28] MEDS ORDERED: BASAGLAR K100 UNIT/1 SQ (12:50)
[2020-06-28] MEDS ORDERED: THIAMINE 1100 MG/TAB PO (12:51)
[2020-06-28] MEDS ORDERED: HUMALOG PEN100 U/ML SQ (12:51)
[2020-06-28] MEDS ORDERED: GLUCOSE TEST ST1 DEV MC (12:52)
[2020-06-28] MEDS ORDERED: CVS GLUCOSE BIT1 CTB PO (12:54)
[2020-06-28] MEDS ORDERED: PROTONIX 40MG T40 MG PO (12:55)
[2020-06-28] MEDS ORDERED: NORVASC 5MG5 MG/TAB PO (12:55)
[2020-06-28] MEDS ORDERED: AMOXICILLIN 8751 TAB PO (12:56)
[2020-06-28] MEDS ORDERED: LOPRESSOR 550 MG/TAB PO (12:56)
[2020-06-28] MEDS ORDERED: FREESTYLE PREC1 EAC5 MC (13:11)
[2020-06-28] MEDS ORDERED: LANCETS MC (13:21)
[2020-06-28] MEDS ORDERED: GLUCOPHAGE500 MG/TAB PO (13:26)
--- NOTE | 2020-06-28 14:59 | NUR ---
RIJ removed per doctors order. Blunt end intact, site covered with tegaderm. Tolerated well.
--- NOTE | 2020-06-28 15:13 | NUR ---
Per nurse, the patient is now able to administer his own insulin. The patient will discharge today, 06/28 to [facility] at [address] in [place], [place]. MELODY faxed discharge orders. The patient to have a follow up at [facility] in [place], [place] on 07/28 at 1500. MELODY faxed patient information to f# . The patient is self-pay. A medication voucher was provided. [facility] was the pharmacy used. The amount was $74.77. MELODY Ahn cotton picker operator medications for the patient. The patient is to be transferred via [facility]. The fee for the transport is $496.80. Per Medical Terminologist, this fee was agreed upon by management. The patient will be picked up at 1530. The team and patient were in agreeance. There are no additional needs.
--- NOTE | 2020-06-28 16:12 | NUR ---
Discharge instructions reviewed with patient, verbalized understanding. [facility] . Medications and paperwork sent with patient.
--- NOTE | 2020-07-12 16:13 | NUR ---
Deputy Attorney General received a phone call from Odell Mccarty (ph#[phone]) from [place] [employer] who is trying to locate any family for patient. Odell advised he called [facility] on 07/06/20 and patient was not there.
[2020-07-13 11:40] LABS: CSF MONONUCLEAR 44 % (70-100); CSF POLYMORPHONUCLEAR 56 % (0-6)
== END 2020-06-28 15:45 | disposition home or self-care (01) | DRG 637 ==
LOC: COL.ER 17:06 → SURG 18:29 → ICU 18:29 → MEDICAL 06-18 15:33 → ICU 06-18 22:57 → MEDICAL 06-18 22:57 → ICU 06-18 22:57 → SURG 06-19 14:30
PROVIDERS: Family Medicine; Hospitalist; Internal Medicine Nephrology; Nurse Practitioner Family; Physician Assistant; Student in an Organized Health Care Education/Training Program; ADMIT Internal Medicine
PROC: 02HV33Z Insertion of Infusion Device into Superior Vena Cava, Percutaneous Approach (ICD-10-PCS; 2020-06-16)
PROC: 4A023N7 Measurement of Cardiac Sampling and Pressure, Left Heart, Percutaneous Approach (ICD-10-PCS; principal; 2020-06-17)
PROC: B2111ZZ Fluoroscopy of Multiple Coronary Arteries using Low Osmolar Contrast (ICD-10-PCS; 2020-06-17)
PROC: 009U3ZX Drainage of Spinal Canal, Percutaneous Approach, Diagnostic (ICD-10-PCS; 2020-06-21)
DX: E11.10 Type 2 diabetes mellitus with ketoacidosis without coma (principal); A41.9 Sepsis, unspecified organism; G93.41 Metabolic encephalopathy; J96.01 Acute respiratory failure with hypoxia; I21.A1 Myocardial infarction type 2; N17.9 Acute kidney failure, unspecified; E87.2 Acidosis; N12 Tubulo-interstitial nephritis, not specified as acute or chronic; F17.210 Nicotine dependence, cigarettes, uncomplicated; Z20.822 Contact with and (suspected) exposure to COVID-19; E87.6 Hypokalemia; F10.10 Alcohol abuse, uncomplicated; F12.10 Cannabis abuse, uncomplicated; F15.10 Other stimulant abuse, uncomplicated; K21.9 Gastro-esophageal reflux disease without esophagitis; I48.91 Unspecified atrial fibrillation; B19.20 Unspecified viral hepatitis C without hepatic coma; J32.1 Chronic frontal sinusitis; J32.2 Chronic ethmoidal sinusitis; I10 Essential (primary) hypertension; B95.7 Other staphylococcus as the cause of diseases classified elsewhere; E86.0 Dehydration; M54.2 Cervicalgia
CPT/HCPCS: 87522; 99223-AI; 99231-AI; 99232-AI; 99233-AI; 99239; A9585; C1760; C1769; C1894; J0360; J0696; J1610; J1644; J1650; J1815; J2250; J2405; J2543; J3010; J3370; J3411; J3475; J3480; J7030; J7040; J7042; J7120; Q9967